=== PATIENT | female | born 1965 | race Caucasian/White ===

== ENCOUNTER 2017-09-01 08:35 | Inpatient (IN) | payer OTHER ==
[~2017-09-01] VITALS: Ht 162.6 cm; Wt 48.8 kg
[2017-09-01] MEDS ORDERED: OXYC15TA89 PO (09:10)
[2017-09-01] MEDS ORDERED: PROM25TA9 PO (09:10)
[2017-09-01] MEDS ORDERED: POTA20TA16 PO (09:10)
[2017-09-01] MEDS ORDERED: CLON0.5T3 PO (09:10)
[2017-09-01] MEDS ORDERED: LACT10SO30 PO (09:10)
[2017-09-01] MEDS ORDERED: PANT40TA PO (09:10)
[2017-09-01] MEDS ORDERED: VALA500T60 PO (09:10)
[2017-09-01] MEDS ORDERED: BUPR-79 PO (09:10)
[2017-09-01] MEDS ORDERED: PROC1TAB5 PO (09:10)
[2017-09-01] MEDS ORDERED: GABA-113 PO (09:10)
[2017-09-01] MEDS ORDERED: OXYC1TAB PO (09:10)
[2017-09-01] MEDS ORDERED: MAGN400T6 PO (09:10)
[2017-09-01] MEDS ORDERED: ANAS1TAB19 PO (09:10)
--- NOTE | 2017-09-01 09:30 | DIAGNOSTIC IMAGING REPORT ---
CT SCAN OF THE BRAIN WITHOUT IV CONTRAST CLINICAL HISTORY: Weakness. Change in mental status. COMPARISON STUDY: No priors. TECHNIQUE: Unenhanced axial CT scan of the brain is performed from the vertex to the skull base. A dose lowering technique was utilized adhering to the principles of ALARA. CT DOSE: 679.75 mGycm FINDINGS: Brain parenchyma: There are age-related involutional changes noting mild subcortical and periventricular microangiopathic change. Chronic lacunar infarcts are identified in the left basal ganglia. There is no hemorrhage, mass effect, or evidence of acute territorial ischemia by CT criteria. Marie-white matter is preserved. No extra-axial fluid collection is seen. Ventricles, sulci, cisterns: Prominent secondary to involutional change. Intracranial vasculature: There is mild atherosclerotic calcification of the cavernous carotid and vertebral arteries. Calvarium: Unremarkable. Sinuses and mastoids: The visualized paranasal sinuses are clear. The mastoid air cells are well pneumatized. Orbits: The bony orbits are grossly intact. IMPRESSION: Age advanced white matter change with no hemorrhage, mass effect, or evidence of acute territorial ischemia by CT criteria. Electronically signed by: Nakul Jacob M.D. 09/01/2017 9:29 AM Dictated Date/Time: 09/01/2017 9:27 AM
--- NOTE | 2017-09-01 09:45 | DIAGNOSTIC IMAGING REPORT ---
SINGLE VIEW CHEST CLINICAL HISTORY: Weakness. Change in mental status. FINDINGS: An AP, portable, upright chest radiograph is obtained. No prior studies are available for comparison at the time of dictation. The examination is degraded by portable technique and patient rotation. A 2-lead cardiac AICD partially obscures the right lower chest. The cardiomediastinal silhouette is unremarkable. The lungs and pleural spaces are clear. No pneumothorax is seen. The bony thorax is grossly intact. IMPRESSION: No acute cardiopulmonary abnormality. Electronically signed by: Nakul Jacob M.D. 09/01/2017 9:44 AM Dictated Date/Time: 09/01/2017 9:43 AM
[2017-09-01 09:53] LABS: BASO % 0.9 %; BASO ABS # 0.06 K/uL (0-0.2); EOS % 1.7 %; EOS ABS # 0.12 K/uL (0-0.5); HEMATOCRIT 31.3 % (37-47); HEMOGLOBIN 10.7 g/dL (12.0-16.0); IG# 0.04 K/uL (0.00-0.02); LYMPH % 26.9 %; LYMPH ABS # 1.88 K/uL (1.2-3.4); MEAN CELL VOLUME 89.2 fL (80-100); MEAN CORPUSCULAR HEMOGLOBIN 30.5 pg (25-34); MEAN CORPUSCULAR HGB CONC 34.2 g/dl (32-36); MEAN PLATELET VOLUME 9.8 fL (7.4-10.4); MONO % 9.3 %; MONO ABS # 0.65 K/uL (0.11-0.59); NEUT % 60.6 %; NEUT ABS # 4.25 K/uL (1.4-6.5); PLATELET COUNT 166 K/uL (130-400); RED CELL DISTRIBUTION WIDTH SD 49.2 fL (36.4-46.3)
[2017-09-01 10:10] LABS: INR 1.1 (0.9-1.1); PTT PATIENT 26.8 SECONDS (21.0-31.0)
[2017-09-01 10:29] LABS: ALBUMIN 3.1 gm/dl (3.4-5.0); ALKALINE PHOSPHATASE 181 U/L (45-117); ALT/SGPT 44 U/L (12-78); AST/SGOT 42 U/L (15-37); BLOOD UREA NITROGEN 26 mg/dl (7-18); CALCIUM 6.7 mg/dl (8.5-10.1); CARBON DIOXIDE 20 mmol/L (21-32); CKMB 1.6 ng/ml (0.5-3.6); CREATININE 2.19 mg/dl (0.60-1.20); GLUCOSE 75 mg/dl (70-99); LIPASE 78 U/L (73-393); POTASSIUM 6.8 mmol/L (3.5-5.1); SODIUM 131 mmol/L (136-145)
[2017-09-01] MEDS ORDERED: SODIUM CHLORIDE 0.9% 1000ML 1,000 ML IV STA (10:45)
[2017-09-01] MEDS ORDERED: SODIUM POLYST. SULF SUSP 15G/60ML PO STA (10:45)
[2017-09-01] MEDS ORDERED: ONDA4TAB46 PO (10:54)
[2017-09-01] MEDS ORDERED: DPH/ PO (10:54)
[2017-09-01] MEDS ORDERED: BUPR-83 PO (10:54)
[2017-09-01] MEDS ORDERED: CHOL2000 PO (10:54)
[2017-09-01] MEDS ORDERED: DOCU-94 PO (10:54)
[2017-09-01] MEDS ORDERED: METO25TA56 PO (10:54)
[2017-09-01] MEDS ORDERED: OLAN-111 PO (10:54)
[2017-09-01] MEDS ORDERED: ENOX60IN SQ (10:54)
[2017-09-01] MEDS ORDERED: ACET-1256 PO (10:54)
[2017-09-01] MEDS ORDERED: OXYC1TAB3 PO (10:54)
[2017-09-01] MEDS ORDERED: [UNRECOGNIZED DRUG - CODE] PO (10:54)
[2017-09-01] MEDS ORDERED: IPRASOL4 INH (10:54)
[2017-09-01] MEDS ORDERED: MAGNESIUM SULFATE 1GM / D5W 1 GM BAG IV STA (10:59)
[2017-09-01 11:21] VITALS: O2SAT 96; BMI 20.4
[2017-09-01] MEDS ORDERED: DEXTROSE 50% 50 ML SYR IV STA (11:59)
[2017-09-01] MEDS ORDERED: INSULIN HUMAN REGULAR IV STA (11:59)
[2017-09-01] MEDS ORDERED: ALBUTEROL 0.083% NEBU SOLN 3 ML VIAL INH STA (11:59)
[2017-09-01] MEDS ORDERED: ONDANSETRON INJ 2 MG/ML 2 ML VIAL IV PRN (12:00)
[2017-09-01] MEDS ORDERED: MAGNESIUM HYDROXIDE SUSP 30 ML UDC PO PRN (12:00)
[2017-09-01] MEDS ORDERED: ACETAMINOPHEN 500 MG TAB PO SCH (12:00)
[2017-09-01] MEDS ORDERED: ZOLPIDEM TARTRATE 5 MG TAB PO PRN ×2 (12:00)
[2017-09-01] MEDS ORDERED: ACETAMINOPHEN 325 MG TAB PO PRN (12:00)
[2017-09-01] MEDS ORDERED: POLYETHYLENE (MIRALAX) 17 GM PACK PO PRN (12:00)
[2017-09-01] MEDS ORDERED: ALUMINUM/MAGNESIUM/SIMETH (MAALOX MAX) 30 ML UDC PO PRN (12:00)
[2017-09-01] MEDS ORDERED: ONDANSETRON 4 MG TAB PO PRN (12:00)
[2017-09-01] MEDS ORDERED: LORAZEPAM 2 MG/ML 1 ML VIAL IV PRN (12:15)
[2017-09-01] MEDS ORDERED: MoRPHine SULFATE 4 MG/ML 1 ML CARP\\VIAL IV STA (12:20)
--- NOTE | 2017-09-01 12:24 | History and Physical ---
History & Physical Date & Time of Service: Sep 01, 2017 at 12:10 Chief Complaint: Seizure Primary Care Physician: No Doctor, Assigned History of Present Illness Source: patient, family 52 years old female who was diagnosed with low-grade serous ovarian cancer/ fallopian tube on 2007. Patient had multiple rounds of chemotherapy complicated by neuropathy. Unfortunately had a recurrent cancer with small bowel obstruction status post laparotomy/intero lysis/ ileocecal resection with anastomosis. That was complicated by bowel gangrene, requiring bowel resection and colostomy around 2016. Since then patient was doing all right but developed critical care illness myopathy. She was discharged to [facility] for physical therapy. She was also started on hormonal therapy for her ovarian cancer. Her hospital stay in [place] was complicated by a DVT which is she taking Lovenox 1 mg/kg twice a day for. At [facility]. staff noticed that patient went to a seizure episode lasted about 5 minutes until paramedics arrived and she was transferred to the ER. Within the last few days patient was not eating or drinking as per family, decrease oral intake. She is also on potassium supplement. On arrival to ED her potassium was 6.8 and creatinine more than 2, family said she has no history of renal impairment Past Medical/Surgical History Surgical Problems: (1) Hx of colectomy Status: Resolved Family History Diabetes mellitus Heart disease Hypertension Stroke Social History Smoking Status: Never Smoker Multi-Drug Resistant Organisms History of MDRO: No Allergies Coded Allergies: No Known Allergies (Unverified , 09/01/17) Home Medications Scheduled Acetaminophen (Tylenol), 500 MG PO Q4H Bupropion (Wellbutrin), 50 MG PO BID Cholecalciferol (Vitamin D3), 1 CAP PO DAILY Diphenoxylate W/ Atropine (Lomotil), 1 TAB PO QID Docusate Sodium (Colace), 1 CAP PO BID Enoxaparin (Lovenox), 60 MG SQ Q12H Ipratropium-Albuterol (Duoneb), 1 TREATMENT INH Q4H Metoprolol Tartrate (Lopressor) (Lopressor), 25 MG PO BID Olanzapine (Zyprexa), 0.5 TAB PO HS Opium Tincture (Opium Tincture), 0.4 ML PO Q6H Pantoprazole (Protonix), 40 MG PO DAILY Potassium Ext Rel (Klor-Con), 20 MEQ PO BID Scheduled PRN Lactulose (Encephalopathy) (Lactulose), 30 ML PO for Constipation Ondansetron Hcl (Zofran), 4 MG PO Q8 PRN for Nausea Oxycodone Ir (Roxicodone Ir), 5 MG PO Q3H PRN for Severe Pain Review of Systems Constitutional: + weight loss, + weakness, + fatigue, No fever, No chills, No sweats, No problem reported Eyes: No worsening of vision, No eye pain, No redness, No discharge, No diplopia, No problem reported ENT: No hearing loss, No unusual epistaxis, No nasal symptoms, No sore throat, No tinnitus, No dental problems, No trouble swallowing, No problem reported Respiratory: No cough, No sputum, No wheezing, No shortness of breath, No dyspnea on exertion, No dyspnea at rest, No hemoptysis, No problem reported Cardiovascular: No chest pain, No orthopnea, No PND, No edema, No claudication , No palpitations, No problem reported Abdomen: + nausea, + vomiting, No pain, No diarrhea, No constipation, No GI bleeding, No problem reported Musculoskeletal: No joint pain, No muscle pain, No swelling, No calf pain, No problem reported Genitourinary - Female: + dysuria (she has indwelling Moffett catheter, developed pain every time she feels that during going through the cath) Neurologic: No memory loss, No paralysis, No weakness, No numbness/tingling, No vertigo, No balance problems, No problem reported Psychiatric: No depression symptoms, No anhedonism, No anxiety, No insomnia, No substance abuse, No problem reported Endocrine: + fatigue, No excessive thirst, No excessive urination, No problem reported Hematologic / Lymphatic: No abnormal bleeding/bruising, No clotting problems, No swollen lymph nodes, No night sweats, No problem reported Integumentary: No rash, No itch, No new/changing skin lesions, No color change , No bleeding, No problem reported Allergic / Immunologic: No environmental allergies, No seasonal allergies, No pet sensitivities, No food allergies, No hives, No frequent infections, No poor healing, No prolonged convalescence, No problem reported Physical Exam Vital Signs Date Time Temp Pulse Resp B/P (MAP) Pulse Ox O2 Delivery O2 Flow Rate FiO2 09/01/17 11:34 77 24 100/66 96 Room Air 09/01/17 11:21 96 Room Air 09/01/17 10:05 83 16 100 09/01/17 09:35 86 16 97 09/01/17 09:05 81 22 97 09/01/17 09:00 99 Room Air 09/01/17 08:50 36.7 84 18 118/68 99 Room Air 09/01/17 08:41 87 09/01/17 08:38 118/68 General Appearance: no apparent distress, + thin Head: normocephalic, atraumatic Eyes: normal inspection, EOMI ENT: normal ENT inspection, hearing grossly normal Neck: supple Respiratory/Chest: chest non-tender, lungs clear, normal breath sounds, no respiratory distress, no accessory muscle use Cardiovascular: regular rate, rhythm, no edema, no gallop, no JVD, no murmur, normal peripheral pulses Abdomen/GI: normal bowel sounds, non tender, soft, + pertinent finding (wound VAC/colostomy next to the) Back: normal inspection Extremities/Musculoskelatal: normal inspection, no calf tenderness, no pedal edema Neurologic/Psych: 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 II-XII nml as tested, no motor/sensory deficits, alert, normal mood/affect, normal reflexes, oriented x 3 Skin: normal color, warm/dry, no rash Diagnostics Laboratory Results Results Past 24 Hours Test 09/01/17 09:28 09/01/17 10:30 09/01/17 11:53 09/01/17 12:00 Range/Units White Blood Count 7.00 4.8-10.8 K/uL Red Blood Count 3.51 4.2-5.4 M/uL Hemoglobin 10.7 12.0-16.0 g/dL Hematocrit 31.3 37-47 % Mean Corpuscular Volume 89.2 80-100 fL Mean Corpuscular Hemoglobin 30.5 25-34 pg Mean Corpuscular Hemoglobin Concent 34.2 32-36 g/dl Platelet Count 166 130-400 K/uL Mean Platelet Volume 9.8 7.4-10.4 fL Neutrophils (%) (Auto) 60.6 % Lymphocytes (%) (Auto) 26.9 % Monocytes (%) (Auto) 9.3 % Eosinophils (%) (Auto) 1.7 % Basophils (%) (Auto) 0.9 % Neutrophils # (Auto) 4.25 1.4-6.5 K/uL Lymphocytes # (Auto) 1.88 1.2-3.4 K/uL Monocytes # (Auto) 0.65 0.11-0.59 K/uL Eosinophils # (Auto) 0.12 0-0.5 K/uL Basophils # (Auto) 0.06 0-0.2 K/uL RDW Standard Deviation 49.2 36.4-46.3 fL RDW Coefficient of Variation 15.0 11.5-14.5 % Immature Granulocyte % (Auto) 0.6 % Immature Granulocyte # (Auto) 0.04 0.00-0.02 K/uL Prothrombin Time 11.5 9.0-12.0 SECONDS Prothromb Time International Ratio 1.1 0.9-1.1 Activated Partial Thromboplast Time 26.8 21.0-31.0 SECONDS Partial Thromboplastin Ratio 1.0 Sodium Level 131 136-145 mmol/L Potassium Level 6.8 3.5-5.1 mmol/L Chloride Level 101 98-107 mmol/L Carbon Dioxide Level 20 21-32 mmol/L Anion Gap 10.0 3-11 mmol/L Blood Urea Nitrogen 26 7-18 mg/dl Creatinine 2.19 0.60-1.20 mg/dl Est Creatinine Clear Calc Drug Dose 25.6 ml/min Estimated GFR () 29.1 Estimated GFR (Non- 25.1 BUN/Creatinine Ratio 11.9 10-20 Random Glucose 75 70-99 mg/dl Calcium Level 6.7 8.5-10.1 mg/dl Magnesium Level 0.4 1.8-2.4 mg/dl Total Bilirubin 0.3 0.2-1 mg/dl Direct Bilirubin 0.1 0-0.2 mg/dl Aspartate Amino Transf (AST/SGOT) 42 15-37 U/L Alanine Aminotransferase (ALT/SGPT) 44 12-78 U/L Alkaline Phosphatase 181 45-117 U/L Total Creatine Kinase 78 26-192 U/L Creatine Kinase MB 1.6 0.5-3.6 ng/ml Creatine Kinase MB Ratio 2.1 0-3.0 Troponin I < 0.015 0-0.045 ng/ml Total Protein 8.0 6.4-8.2 gm/dl Albumin 3.1 3.4-5.0 gm/dl Lipase 78 73-393 U/L Thyroid Stimulating Hormone (TSH) 9.040 0.300-4.500 uIu/ml Urine Color YELLOW Urine Appearance CLOUDY CLEAR Urine pH 7.5 4.5-7.5 Urine Specific [place] 1.012 1.000-1.030 Urine Protein NEG NEG Urine Glucose (UA) NEG NEG Urine Ketones NEG NEG Urine Occult Blood NEG NEG Urine Nitrite POS NEG Urine Bilirubin NEG NEG Urine Urobilinogen NEG NEG Urine Leukocyte Esterase LARGE NEG Urine WBC (Auto) >30 0-5 /hpf Urine RBC (Auto) 10-30 0-4 /hpf Urine Hyaline Casts (Auto) 1-5 0-5 /lpf Urine Epithelial Cells (Auto) 0-5 0-5 /lpf Urine Bacteria (Auto) 4+ NEG Microbiology Results 09/01/17 Blood Culture, Ordered Pending 09/01/17 Blood Culture, Ordered Pending 09/01/17 Urine Culture, Received Pending Impression Assessment and Plan 52 years old female who was diagnosed with recurrent low-grade serous ovarian cancer/fallopian tube since 2007. Complicated by small bowel obstruction status post laparotomy/intero lysis/ ileocecal resection with anastomosis. That was complicated by bowel gangrene, requiring bowel resection and colostomy around 2016. Presented with acute kidney injury/hyperkalemia/ seizure times one episode Assessment Seizure 5 minutes one episode likely secondary to electrolyte Dehydration, decrease oral intake Acute kidney injury, baseline creatinine is unknown Hyperkalemia secondary to above Hypomagnesemia Complicated UTI present on admission in the setting of indwelling Moffett catheter Hypothyroidism Recurrent ovarian cancer status post chemotherapy/resection currently have colostomy and on hormonal therapy DVT currently on anticoagulation Severe protein calorie malnutrition Critical care illness myopathy Plan Admit patient to telemetry Order kayexalate Order albuterol 5 mg continuous nebulizer to lower potassium level Order 10 units insulin regular IV +1 amp of D50 Reviewed EKG and ordered calcium gluconate IV if there is any EKG changes Check potassium level every 4 hours Generous IV fluid hydration and Lasix if needed Hold outpatient medication contributing to hyperkalemia Replace magnesium and check serious magnesium level Ultrasound renal Consult aboriginal home school liaison officer Obtain blood culture/urine culture Replace Moffett catheter Start patient on Cipro 400 mg daily renally adjusted dose and obtain records from [facility] with her last creatinine function level Start her on lactobacillus to protect her from C. difficile Follow up electrolytes Continue outpatient medications except potassium supplement Continue Lovenox subcutaneous twice a day Continue Protonix Seizure precaution Ativan when necessary seizure Advanced Directives Existing Living Will: No Existing Power of Gin Feeder: No Resuscitation Status FULL RESUSCITATION
--- NOTE | 2017-09-01 12:53 | DIAGNOSTIC IMAGING REPORT ---
(RENAL)RETROPERITON COMP HISTORY: Renal insufficiency renal failure COMPARISON: None. FINDINGS: Right kidney: Maximum linear dimension 9.2 cm. 7 mm cortical cyst. Mild cortical scarring. No evidence for hydronephrosis. Normal corticomedullary differentiation and cortical thickness. Left kidney: Maximum dimension 8.3 cm. Mild cortical scarring. No evidence for hydronephrosis. Normal corticomedullary differentiation and cortical thickness. Bladder: No bladder wall thickening. The bilateral ureteral jets were identified. IMPRESSION: 1. Mild cortical scarring of the kidneys bilaterally. 2. Small right renal cortical cyst. 3. No evidence for hydronephrosis. The above report was generated using voice recognition software. It may contain grammatical, syntax or spelling errors. Electronically signed by: Andrew Mcknight M.D. 09/01/2017 12:51 PM Dictated Date/Time: 09/01/2017 12:50 PM
[2017-09-01] MEDS ORDERED: DEXTROSE 50% 50 ML SYR IV SCH (13:20)
[2017-09-01] MEDS ORDERED: INSULIN HUMAN REGULAR PER UNIT 10 UNITS in SYRINGE 9.9 ML IV SCH (13:30)
[2017-09-01] MEDS ORDERED: CEFTRIAXONE SOD INJ 1 GM ADDVIAL IV STA (13:41)
--- NOTE | 2017-09-01 13:43 | EMERGENCY ROOM VISIT NOTE ---
History Report prepared by Nandini: Miko Olea Under the Supervision of: Dr. Ty Hernandez D.O. First contact with patient: 09:00 Chief Complaint: SEIZURE Stated Complaint: SEIZURE Nursing Triage Summary: pt arrived als from medical center clinic reported 5 minute seizure, no previous hx of seizure. pt hx of oviarian ca since 2007, recent surgery bowel obstruction, pt has a wound vac, marrero, iliostomy pt has no complaints at this time History of Present Illness The patient is a 52 year old female who presents to the Emergency Room with complaints of a resolved, 5 minute seizure that occurred prior to arrival. EMS notes the patient's seizure lasted 5 minutes. The patient reports she currently feel fine. The patient states she recently had surgery and lives at [facility]. She reports she currently has a Wound Vac, Fully, and ileostomy in place. The patient notes she has been battling ovarian cancer since 2007. She states she does not know why she had her colon removed. She denies recent fever , cough, sorethroat, abdominal pain, chest pain, and a headache. Source of History: patient Onset: prior to arrival Position: other (global) Symptom Intensity: 5 minutes Quality: other (seizure) Timing: resolved Associated Symptoms: No fevers, No headache, No sorethroat, No cough, No chest pain, No abdominal pain Review of Systems See HPI for pertinent positives & negatives. A total of 10 systems reviewed and were otherwise negative. Past Medical & Surgical Medical Problems: (1) Hyperkalemia (2) Ovarian cancer Surgical Problems: (1) Hx of colectomy Family History Diabetes mellitus Heart disease Hypertension Stroke Social History Smoking Status: Never Smoker Marital Status: Housing Status: other ([facility]) Occupation Status: disabled Current/Historical Medications Scheduled Acetaminophen (Tylenol), 500 MG PO Q4H Bupropion (Wellbutrin), 50 MG PO BID Cholecalciferol (Vitamin D3), 1 CAP PO DAILY Diphenoxylate W/ Atropine (Lomotil), 1 TAB PO QID Docusate Sodium (Colace), 1 CAP PO BID Enoxaparin (Lovenox), 60 MG SQ Q12H Ipratropium-Albuterol (Duoneb), 1 TREATMENT INH Q4H Metoprolol Tartrate (Lopressor) (Lopressor), 25 MG PO BID Olanzapine (Zyprexa), 0.5 TAB PO HS Opium Tincture (Opium Tincture), 0.4 ML PO Q6H Pantoprazole (Protonix), 40 MG PO DAILY Potassium Ext Rel (Klor-Con), 20 MEQ PO BID Scheduled PRN Lactulose (Encephalopathy) (Lactulose), 30 ML PO for Constipation Ondansetron Hcl (Zofran), 4 MG PO Q8 PRN for Nausea Oxycodone Ir (Roxicodone Ir), 5 MG PO Q3H PRN for Severe Pain Allergies Coded Allergies: No Known Allergies (Unverified , 09/01/17) Physical Exam Vital Signs Date Time Temp Pulse Resp B/P (MAP) Pulse Ox O2 Delivery O2 Flow Rate FiO2 09/01/17 13:11 80 16 99/66 96 Room Air 09/01/17 12:45 80 09/01/17 11:34 77 24 100/66 96 Room Air 09/01/17 11:21 96 Room Air 09/01/17 10:05 83 16 100 09/01/17 09:35 86 16 97 09/01/17 09:05 81 22 97 09/01/17 09:00 99 Room Air 09/01/17 08:50 36.7 84 18 118/68 99 Room Air 09/01/17 08:41 87 09/01/17 08:38 118/68 Physical Exam CONSTITUTIONAL/VITAL SIGNS: Reviewed / noted above. GENERAL: Non-toxic in appearance. INTEGUMENTARY: Warm, dry, and [place]. HEAD: Normocephalic. EYES: without scleral icterus or trauma. ENT/OROPHARYNX: clear and moist. LYMPHADENOPATHY/NECK: Is supple without lymphadenopathy or meningismus. RESPIRATORY: Lungs clear and equal. CARDIOVASCULAR: Regular rate and rhythm. GI/ABDOMEN: Soft and nontender. No organomegaly or pulsatile mass. No rebound or guarding. Normal bowel sounds. Right abdomen has a colostomy. Left abdomen has a Wound Vac. EXTREMITIES: Warm and well perfused. BACK: No CVA tenderness. NEUROLOGICAL: Intact without focal deficits. PSYCHIATRIC: normal affect. MUSCULOSKELETAL: Normally developed with good muscle tone. Medical Decision & Procedures ER Provider Diagnostic Interpretation: Radiology results as stated below per my review and radiologist interpretation: CT SCAN OF THE BRAIN WITHOUT IV CONTRAST CLINICAL HISTORY: Weakness. Change in mental status. COMPARISON STUDY: No priors. TECHNIQUE: Unenhanced axial CT scan of the brain is performed from the vertex to the skull base. A dose lowering technique was utilized adhering to the principles of ALARA. CT DOSE: 679.75 mGycm FINDINGS: Brain parenchyma: There are age-related involutional changes noting mild subcortical and periventricular microangiopathic change. Chronic lacunar infarcts are identified in the left basal ganglia. There is no hemorrhage, mass effect, or evidence of acute territorial ischemia by CT criteria. Marie-white matter is preserved. No extra-axial fluid collection is seen. Ventricles, sulci, cisterns: Prominent secondary to involutional change. Intracranial vasculature: There is mild atherosclerotic calcification of the cavernous carotid and vertebral arteries. Calvarium: Unremarkable. Sinuses and mastoids: The visualized paranasal sinuses are clear. The mastoid air cells are well pneumatized. Orbits: The bony orbits are grossly intact. IMPRESSION: Age advanced white matter change with no hemorrhage, mass effect, or evidence of acute territorial ischemia by CT criteria. Electronically signed by: Nakul Jacob M.D. 09/01/2017 9:29 AM Dictated Date/Time: 09/01/2017 9:27 AM SINGLE VIEW CHEST CLINICAL HISTORY: Weakness. Change in mental status. FINDINGS: An AP, portable, upright chest radiograph is obtained. No prior studies are available for comparison at the time of dictation. The examination is degraded by portable technique and patient rotation. A 2-lead cardiac AICD partially obscures the right lower chest. The cardiomediastinal silhouette is unremarkable. The lungs and pleural spaces are clear. No pneumothorax is seen. The bony thorax is grossly intact. IMPRESSION: No acute cardiopulmonary abnormality. Electronically signed by: Nakul Jacob M.D. 09/01/2017 9:44 AM Dictated Date/Time: 09/01/2017 9:43 AM Laboratory Results 09/01/17 09:28 Red Blood Count 3.51, Mean Corpuscular Volume 89.2, Mean Corpuscular Hemoglobin 30.5, Mean Corpuscular Hemoglobin Concent 34.2, Mean Platelet Volume 9.8, Neutrophils (%) (Auto) 60.6, Lymphocytes (%) (Auto) 26.9, Monocytes (%) (Auto) 9.3, Eosinophils (%) (Auto) 1.7, Basophils (%) (Auto) 0.9, Neutrophils # (Auto) 4.25, Lymphocytes # (Auto) 1.88, Monocytes # (Auto) 0.65, Eosinophils # (Auto) 0.12, Basophils # (Auto) 0.06 Test 09/01/17 09:28 09/01/17 10:30 09/01/17 13:30 White Blood Count 7.00 K/uL (4.8-10.8) Red Blood Count 3.51 M/uL (4.2-5.4) Hemoglobin 10.7 g/dL (12.0-16.0) Hematocrit 31.3 % (37-47) Mean Corpuscular Volume 89.2 fL (80-100) Mean Corpuscular Hemoglobin 30.5 pg (25-34) Mean Corpuscular Hemoglobin Concent 34.2 g/dl (32-36) Platelet Count 166 K/uL (130-400) Mean Platelet Volume 9.8 fL (7.4-10.4) Neutrophils (%) (Auto) 60.6 % Lymphocytes (%) (Auto) 26.9 % Monocytes (%) (Auto) 9.3 % Eosinophils (%) (Auto) 1.7 % Basophils (%) (Auto) 0.9 % Neutrophils # (Auto) 4.25 K/uL (1.4-6.5) Lymphocytes # (Auto) 1.88 K/uL (1.2-3.4) Monocytes # (Auto) 0.65 K/uL (0.11-0.59) Eosinophils # (Auto) 0.12 K/uL (0-0.5) Basophils # (Auto) 0.06 K/uL (0-0.2) RDW Standard Deviation 49.2 fL (36.4-46.3) RDW Coefficient of Variation 15.0 % (11.5-14.5) Immature Granulocyte % (Auto) 0.6 % Immature Granulocyte # (Auto) 0.04 K/uL (0.00-0.02) Prothrombin Time 11.5 SECONDS (9.0-12.0) Prothromb Time International Ratio 1.1 (0.9-1.1) Activated Partial Thromboplast Time 26.8 SECONDS (21.0-31.0) Partial Thromboplastin Ratio 1.0 Est Creatinine Clear Calc Drug Dose 25.6 ml/min Total Bilirubin 0.3 mg/dl (0.2-1) Direct Bilirubin 0.1 mg/dl (0-0.2) Aspartate Amino Transf (AST/SGOT) 42 U/L (15-37) Alanine Aminotransferase (ALT/SGPT) 44 U/L (12-78) Alkaline Phosphatase 181 U/L (45-117) Total Creatine Kinase 78 U/L (26-192) Creatine Kinase MB 1.6 ng/ml (0.5-3.6) Creatine Kinase MB Ratio 2.1 (0-3.0) Troponin I < 0.015 ng/ml (0-0.045) Total Protein 8.0 gm/dl (6.4-8.2) Albumin 3.1 gm/dl (3.4-5.0) Lipase 78 U/L (73-393) Thyroid Stimulating Hormone (TSH) 9.040 uIu/ml (0.300-4.500) Urine Color YELLOW Urine Appearance CLOUDY (CLEAR) Urine pH 7.5 (4.5-7.5) Urine Specific [place] 1.012 (1.000-1.030) Urine Protein NEG (NEG) Urine Glucose (UA) NEG (NEG) Urine Ketones NEG (NEG) Urine Occult Blood NEG (NEG) Urine Nitrite POS (NEG) Urine Bilirubin NEG (NEG) Urine Urobilinogen NEG (NEG) Urine Leukocyte Esterase LARGE (NEG) Urine WBC (Auto) >30 /hpf (0-5) Urine RBC (Auto) 10-30 /hpf (0-4) Urine Hyaline Casts (Auto) 1-5 /lpf (0-5) Urine Epithelial Cells (Auto) 0-5 /lpf (0-5) Urine Bacteria (Auto) 4+ (NEG) Laboratory results as stated above per my review. Medications Administered Medications (Trade) Dose Ordered Sig/Balaji Route Start Time Stop Time Status Last Admin Dose Admin Sodium Chloride 1,000 ml @ 999 mls/hr Q1H1M STAT IV 09/01/17 10:45 09/01/17 11:45 DC 09/01/17 11:07 999 MLS/HR Sodium Polystyrene Sulfonate (Kayexalate Susp) 30 gm NOW STAT PO 09/01/17 10:45 09/01/17 10:47 DC 09/01/17 11:05 30 GM Magnesium Sulfate (Magnesium Sulfate) 2 gm NOW STAT IV 09/01/17 10:59 09/01/17 11:00 DC 09/01/17 11:12 2 GM Morphine Sulfate (MoRPHine SULFATE INJ) 4 mg NOW STAT IV 09/01/17 12:20 09/01/17 12:21 DC 09/01/17 12:50 4 MG ECG Indication: other (seizure) Rate (beats per minute): 86 Rhythm: normal sinus Findings: no acute ischemic change, no ectopy ED Course 09: Previous medical records were reviewed. The patient was evaluated in room A03. A complete history and physical examination was performed. 1045: Ordered Sodium Polystyrene Sulfonate 30gm PO, Sodium Chloride 1000 ml @ 999 mls/hr IV 1047: On reevaluation, the patient is resting comfortably. I discussed the results and findings with her. She verbalized agreement of the treatment plan. 1057: I spoke with Dr. Sudeep España of the [facility] Hospitalist Service. The patient will be evaluated for further management and care. 1059: Ordered Magnesium Sulfate 2gm IV 1220: Ordered Morphine Sulfate 4 mg IV Medical Decision Differential diagnosis: Etiologies such as infection, hypoglycemia, electrolyte abnormalities, cardiac sources, intracerebral event, trauma, toxicologic, neurologic, as well as others were entertained. This is a 52-year-old female who presents to the ED with a chief complaint of a seizure. The patient had a reported tonic-clonic seizure at [facility] just prior to arrival. The patient's seizure lasted about 5 minutes, per report. The patient denies any history of seizures. She does report a history of ovarian cancer in 2007. The patient had recent bowel resection due to tumor around the bowel and subsequent colostomy. This occurred over . She has been sent to [facility] for recovery due to chronic neuropathy and weakness. On exam, the patient denies having any symptoms. She states that she feels fine. Family reports the patient has had some nausea, decreased appetite and a little vomiting over the past few days. Her physical exam did not reveal any abdominal tenderness. Her colostomy appears to be functioning normally. She does have a wound VAC in the left lower abdomen that does not reveal any obvious visible abnormalities. She has no tenderness in the area. She did not injure her tongue or have incontinence. Her vital signs are normal. She is afebrile. Laboratory studies revealed an elevated potassium of 6.8 and a creatinine of 2.19. EKG did not show any acute findings. Baseline creatinine is unknown but family reports no prior history of kidney dysfunction. Troponin was negative. Hemoglobin is 10.7. CT scan of the brain did not show acute process and a chest x-ray did not show acute process. The patient was treated with IV fluids. She was given IV Rocephin for her UTI. By mouth Kayexalate was given. The patient was seen by the hospitalist for further inpatient evaluation and care. Medication Reconcilliation Current Medication List: was personally reviewed by me Blood Pressure Screening Patient's blood pressure: Normal blood pressure Blood pressure disposition: Did not require urgent referral Consults Time Called: 1042 Consulting Physician: Dr. Sudeep España of the [facility] Hospitalist Service Returned Call: [phone] Sudeep España of the [facility] Hospitalist Service. The patient will be evaluated for further management and care. Impression Primary Impression: Seizure Additional Impressions: Acute renal failure Hyperkalemia Scribe Attestation The scribe's documentation has been prepared under my direction and personally reviewed by me in its entirety. I confirm that the note above accurately reflects all work, treatment, procedures, and medical decision making performed by me. Departure Information Dispostion Being Evaluated By Hospitalist Referrals Riaz Ramsay M.D. (PCP) Patient Instructions [facility] Problem Qualifiers
[2017-09-01 14:07] LABS: CALCIUM 6.7 mg/dl (8.5-10.1); CREATININE 2.27 mg/dl (0.60-1.20); POTASSIUM 5.9 mmol/L (3.5-5.1)
[2017-09-01] MEDS ORDERED: LORAZEPAM INJ 2 MG in SYRINGE 1 ML IV PRN (14:15)
[2017-09-01 14:20] VITALS: BP 99/66; PULSE 96; TEMP 36.5; O2SAT 99
[2017-09-01] MEDS ORDERED: SODIUM POLYST. SULF SUSP 15G/60ML PO SCH (15:00)
[2017-09-01] MEDS: SODIUM CHLORIDE 0.9% 1000ML 1,000 ML IV SCH (15:41)
[2017-09-01 16:36] VITALS: Ht 162.6 cm; Wt 48.8 kg
[2017-09-01] MEDS: CIPROFLOXACIN / D5W 400 MG in PREMIXED IN D5W 200 ML IV SCH (16:39)
[2017-09-01] MEDS: DIPHENOXYLATE/ATROPINE 2.5/0.025MG TAB PO SCH ×2 (16:39→20:48)
[2017-09-01] MEDS: LACTOBACILLUS ACIDOPHILUS 1 GM PACK PO SCH (16:40)
[2017-09-01 16:54] LABS: CREATININE 2.39 mg/dl (0.60-1.20); POTASSIUM 5.5 mmol/L (3.5-5.1)
--- NOTE | 2017-09-01 17:05 | Nephrology Consultation ---
Nephrology Consultation Date & Providers Date of Consultation: Sep 01, 2017. Primary Care Provider: No Doctor, Assigned Referring Provider: Reason for Consultation Acute renal insufficiency, hyperkalemia History of Present Illness Ms. Dora Garsia is a 52-year-old female who presented to [facility] today for evaluation of a witnessed tonic clonic seizure. I spoke with nursing staff at [facility]. She was transported by EMS to [facility] ED from [facility]. Dora was confused upon presentation to the ED today. Mental status has gradually improved. She was able to answer questions appropriately this afternoon. 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 She has been under the care of Dr. Jadiel Huffman of [facility]. Dora completed initial chemotherapy complicated by neuropathy. Unfortunately, she developed recurrent disease and presented to [facility] with small bowel obstruction. Dora subsequently underwent laparotomy with ileocecal resection with anastomosis. This was complicated by bowel gangrene, requiring bowel resection and colostomy which was performed in June 2017 at [facility]. 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 She has an abdominal wound with wound vac in place. Dora was discharged to [facility] on August 13. It is noted that Dora has had high output from her ostomy. This was treated with Lomotil and opium tincture. Dora's appetite is noted to be poor. Oral intake had decreased over the past few days. She had nausea and two episodes of vomiting (non bilious, non bloody) in the past 48 hours. Serum creatinine on August 20 was 1.3 mg/dL. Potassium was 4.7 mmol/L at that time. Creatinine was 1.5 mg/dL on the with a potassium of 5.5 mmol/L. Dora has had an indwelling Moffett catheter. She reports that the plan was to consider removal once she was able to follow up in the [facility] clinic with Dr. Huffman. Nephrology was consulted today to assist in the management of hyperkalemia, hypomagnesemia and acute renal insufficiency. CXR and CT head were reviewed. EKG was not immediately available for review at this time. Dora is on telemetry. Hyperkalemia was treated with PO Kayexalate. She received 6 gm of IV magnesium. IV hydration is being provided with NSS. Dora is tolerating treatment well. Past Medical/Surgical History Medical: -- Low grade serous ovarian cancer -- Recent SBO -- Chronic anemia -- Neuropathy associated with chemotherapy -- Depression -- GERD -- Chronic kidney disease, patient follows with Dr. Toth on a yearly basis for CKD Surgical: -- Colostomy as described above, additional records to follow Allergies Coded Allergies: No Known Allergies (Unverified , 09/01/17) Inpatient Medications Current Inpatient Medications Medications (Trade) Dose Ordered Sig/Balaji Route Start Time Stop Time Status Last Admin Dose Admin Bupropion HCl (Wellbutrin Tab) 50 mg BID PO 09/01/17 21:00 10/01/17 20:59 Diphenoxylate HCl/ Atropine (Lomotil Tab) 1 tab QID PO 09/01/17 17:00 10/01/17 16:59 Enoxaparin Sodium (Lovenox Inj) 60 mg Q12H SQ 09/01/17 12:00 10/01/17 11:59 UNV Albuterol/ Ipratropium (Duoneb) 3 ml QIDR INH 09/01/17 16:00 10/01/17 15:59 Olanzapine (Zyprexa Tab) 2.5 mg HS PO 09/01/17 21:00 10/01/17 20:59 Ondansetron HCl (Zofran Tab) 4 mg Q8 PRN PO 09/01/17 12:00 10/01/17 11:59 Oxycodone HCl (Roxicodone Immediate Rel Tab) 5 mg Q3H PRN PO 09/01/17 12:00 09/15/17 11:59 Pantoprazole Sodium (Protonix Tab) 40 mg DAILY PO 09/02/17 09:00 10/02/17 08:59 Sodium Chloride 1,000 ml @ 125 mls/hr Q8H IV 09/01/17 11:59 10/01/17 11:58 09/01/17 15:41 125 MLS/HR Acetaminophen (Tylenol Tab) 650 mg Q4H PRN PO 09/01/17 12:00 10/01/17 11:59 Al Hydrox/Mg Hydrox/Simethicone (Maalox Max Susp) 15 ml Q4H PRN PO 09/01/17 12:00 10/01/17 11:59 Magnesium Hydroxide (Milk Of Magnesia Susp) 30 ml Q12H PRN PO 09/01/17 12:00 10/01/17 11:59 Zolpidem Tartrate (Ambien Tab) 5 mg HSZ PRN PO 09/01/17 12:00 10/01/17 11:59 Ondansetron HCl (Zofran Inj) 4 mg Q6H PRN IV 09/01/17 12:00 10/01/17 11:59 Polyethylene (Miralax Powder Packet) 17 gm DAILY PRN PO 09/01/17 12:00 10/01/17 11:59 Sodium Polystyrene Sulfonate (Kayexalate Susp) 15 gm Q4H PO 09/01/17 15:00 09/02/17 12:00 Ciprofloxacin/ Dextrose 400 mg/ Prmx 200 ml @ 100 mls/hr DAILY@1600 IV 09/01/17 16:00 09/11/17 15:59 Lactobacillus Acidophilus (Lactinex Granules Pack) 1 gm TIDM PO 09/01/17 17:00 10/01/17 17:59 Enteral Nutritional Formula (Boost Plus Vanilla) 1 can BID PO 09/01/17 21:00 10/01/17 20:59 Lorazepam (Ativan Inj) 2 mg Q2H PRN IV 09/01/17 12:15 10/01/17 12:14 Lorazepam 2 mg/ Syringe 2 ml @ 1 mls/min Q2H PRN IV 09/01/17 14:15 10/01/17 14:14 Family History Diabetes mellitus Heart disease Hypertension Stroke Patient's mother was on hemodialysis for 2 years in [facility] before she at the age of 73. Social History Smoking Status: Never Smoker Marital Status: Occupation: disabled Lives in a skilled nursing in [place], [place]. Review of Systems A complete review of systems was performed. Pertinent positives are noted above. All other systems are negative. Physical Exam Date Time Temp Pulse Resp B/P (MAP) Pulse Ox O2 Delivery O2 Flow Rate FiO2 09/01/17 14:20 36.5 96 20 99/66 (77) 99 Room Air 09/01/17 13:50 92 18 108/76 96 Nebulizer 8.0 09/01/17 13:11 80 16 99/66 96 Room Air 09/01/17 12:45 80 09/01/17 11:34 77 24 100/66 96 Room Air 09/01/17 11:21 96 Room Air 09/01/17 10:05 83 16 100 09/01/17 09:35 86 16 97 09/01/17 09:05 81 22 97 09/01/17 09:00 99 Room Air 09/01/17 08:50 36.7 84 18 118/68 99 Room Air 09/01/17 08:41 87 09/01/17 08:38 118/68 General Appearance: no apparent distress, + thin Head: normocephalic, atraumatic Eyes: normal inspection, sclerae normal ENT: normal ENT inspection, pharynx normal, + pertinent finding (oral mucosa dry) Neck: supple, no JVD Respiratory/Chest: lungs clear, no respiratory distress, no accessory muscle use Cardiovascular: regular rate, rhythm, no gallop Abdomen/GI: non tender, soft, + pertinent finding (wound vac intact, ostomy draining liquid brown stool) Genitourinary - Female: + pertinent finding (Moffett draining cloudy yellow urine ) Back: no CVA tenderness Extremities/Musculoskelatal: no pedal edema, + pertinent finding (no distal cyanosis) Neurologic/Psych: alert, normal mood/affect Laboratory Results Last 24 Hours Test 09/01/17 09:28 09/01/17 10:30 09/01/17 13:30 09/01/17 15:59 White Blood Count 7.00 K/uL Red Blood Count 3.51 M/uL Hemoglobin 10.7 g/dL Hematocrit 31.3 % Mean Corpuscular Volume 89.2 fL Mean Corpuscular Hemoglobin 30.5 pg Mean Corpuscular Hemoglobin Concent 34.2 g/dl Platelet Count 166 K/uL Mean Platelet Volume 9.8 fL Neutrophils (%) (Auto) 60.6 % Lymphocytes (%) (Auto) 26.9 % Monocytes (%) (Auto) 9.3 % Eosinophils (%) (Auto) 1.7 % Basophils (%) (Auto) 0.9 % Neutrophils # (Auto) 4.25 K/uL Lymphocytes # (Auto) 1.88 K/uL Monocytes # (Auto) 0.65 K/uL Eosinophils # (Auto) 0.12 K/uL Basophils # (Auto) 0.06 K/uL RDW Standard Deviation 49.2 fL RDW Coefficient of Variation 15.0 % Immature Granulocyte % (Auto) 0.6 % Immature Granulocyte # (Auto) 0.04 K/uL Prothrombin Time 11.5 SECONDS Prothromb Time International Ratio 1.1 Activated Partial Thromboplast Time 26.8 SECONDS Partial Thromboplastin Ratio 1.0 Sodium Level 131 mmol/L 131 mmol/L Potassium Level 6.8 mmol/L 5.9 mmol/L Chloride Level 101 mmol/L 99 mmol/L Carbon Dioxide Level 20 mmol/L 21 mmol/L Anion Gap 10.0 mmol/L 11.0 mmol/L Blood Urea Nitrogen 26 mg/dl 24 mg/dl Creatinine 2.19 mg/dl 2.27 mg/dl Est Creatinine Clear Calc Drug Dose 25.6 ml/min 24.7 ml/min Estimated GFR () 29.1 27.8 Estimated GFR (Non- 25.1 24.0 BUN/Creatinine Ratio 11.9 10.7 Random Glucose 75 mg/dl 111 mg/dl Calcium Level 6.7 mg/dl 6.7 mg/dl Magnesium Level 0.4 mg/dl 1.4 mg/dl Total Bilirubin 0.3 mg/dl Direct Bilirubin 0.1 mg/dl Aspartate Amino Transf (AST/SGOT) 42 U/L Alanine Aminotransferase (ALT/SGPT) 44 U/L Alkaline Phosphatase 181 U/L Total Creatine Kinase 78 U/L Creatine Kinase MB 1.6 ng/ml Creatine Kinase MB Ratio 2.1 Troponin I < 0.015 ng/ml Total Protein 8.0 gm/dl Albumin 3.1 gm/dl Lipase 78 U/L Thyroid Stimulating Hormone (TSH) 9.040 uIu/ml Urine Color YELLOW Urine Appearance CLOUDY Urine pH 7.5 Urine Specific [place] 1.012 Urine Protein NEG Urine Glucose (UA) NEG Urine Ketones NEG Urine Occult Blood NEG Urine Nitrite POS Urine Bilirubin NEG Urine Urobilinogen NEG Urine Leukocyte Esterase LARGE Urine WBC (Auto) >30 /hpf Urine RBC (Auto) 10-30 /hpf Urine Hyaline Casts (Auto) 1-5 /lpf Urine Epithelial Cells (Auto) 0-5 /lpf Urine Bacteria (Auto) 4+ Chemistry Specimen Hemolysis Impression (1) Acute renal failure (2) Hyperkalemia (3) Hypomagnesemia (4) Seizure (5) Ovarian cancer Dora Garsia is a 52-year-old female with acute on chronic renal insufficiency. Baseline creatinine is 1.3 mg/dL. CKD attributed to igiugig based chemotherapy. Medical history is notable serous ovarian/fallopian tube cancer. The patient has high output colostomy. She has chronic hypokalemia for which she was maintained on a daily potassium supplement. She was admitted with witnessed seizure and severe electrolyte abnormalities including hyperkalemia and hypomagnesemia. Renal ultrasound documented chronic cortical changes but no evidence of obstruction. The patient has an indwelling Moffett catheter which will remain intake. TAJ can be attributed to ATN and prerenal azotemia. She is tolerating IVF well. She has a mild metabolic acidosis which will be monitored. Bicarbonate replacement will be provided as needed. I/O's will be documented. I would strive to maintain a positive fluid balance of at least 1.5 liters over the next 12 hours. Hyperkalemia responding to treatment. Hold additional Kayexalate at this time. Continue to provide hydration and replacement HCO3 as needed. Hypomagnesemia improving with replacement. I suspect metabolic abnormalities are related to GI losses and poor oral intake. BP is low and Lopressor should be held. Recommendations -- Stop standing Kayexalate. -- Start HCO3 replacement with 650 mEq TID. -- Monitor metabolic profile q4-6 hours. 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 -- Document strict I/O's. -- Obtain UA/microscopy. -- Continue NS @ 125 ml/hr. Goal to encourage at least 1.5 L positive fluid balance over next 24 hours. -- Hold metoprolol. -- Avoid oral replacement of mangesium. -- I discussed potential indications for dialysis with the patient today. Will obtain outpatient records from Dr. Toth. -- Obtain recent records from [facility].
[2017-09-01] MEDS: ENOXAPARIN 60 MG/0.6 ML SYR SQ SCH (18:59)
[2017-09-01] MEDS: BOOST BREEZE NUTRITION DRINK 1 BOX PO SCH (18:59)
[2017-09-01] MEDS: ALBUT/IPRATROP 3MG/0.5MG NEB 3 ML VIAL INH SCH ×2 (20:05→21:07)
[2017-09-01 20:25] VITALS: BP 122/72; PULSE 98; TEMP 36.3; O2SAT 100
[2017-09-01] MEDS: SODIUM BICARBONATE 650 MG TAB PO SCH (20:46)
[2017-09-01] MEDS: OLANZAPINE 2.5 MG TAB PO SCH (20:47)
[2017-09-01] MEDS ORDERED: BOOST PLUS VANILLA PO SCH (21:00)
[2017-09-01 21:09] LABS: CALCIUM 6.8 mg/dl (8.5-10.1); CREATININE 2.45 mg/dl (0.60-1.20); POTASSIUM 4.9 mmol/L (3.5-5.1)
[2017-09-01] MEDS ORDERED: LORAZEPAM INJ 1 MG in SYRINGE 0.5 ML IV STA (21:25)
[2017-09-01] MEDS ORDERED: MAGNESIUM SULFATE 1GM / D5W 1 GM in PREMIXED IN D5W 100 ML IV ONE (21:30)
[2017-09-01] MEDS ORDERED: DEXTROSE 50% 50 ML SYR IV ONE ×2 (21:30→22:15)
[2017-09-01] MEDS ORDERED: NURSING VERBAL MED ORDER ONE (22:00)
[2017-09-01 23:05] VITALS: BP 95/62; PULSE 94; TEMP 36.8; O2SAT 93
[2017-09-02] VITALS (11 sets, daily range): BP systolic 97–103; BP diastolic 63–70; PULSE 96–112; TEMP 36.5–37.1; O2SAT 96–100
[2017-09-02 00:38] LABS: CALCIUM 6.6 mg/dl (8.5-10.1); CREATININE 2.37 mg/dl (0.60-1.20); POTASSIUM 3.9 mmol/L (3.5-5.1)
[2017-09-02] MEDS: SODIUM CHLORIDE 0.9% 1000ML 1,000 ML IV SCH ×3 (01:20→22:31)
[2017-09-02 04:16] LABS: BASO % 0.4 %; BASO ABS # 0.03 K/uL (0-0.2); EOS % 1.3 %; HEMATOCRIT 28.7 % (37-47); HEMOGLOBIN 9.8 g/dL (12.0-16.0); IG# 0.05 K/uL (0.00-0.02); LYMPH % 25.9 %; MEAN CELL VOLUME 89.1 fL (80-100); MEAN CORPUSCULAR HEMOGLOBIN 30.4 pg (25-34); MEAN CORPUSCULAR HGB CONC 34.1 g/dl (32-36); MEAN PLATELET VOLUME 9.9 fL (7.4-10.4); MONO ABS # 0.93 K/uL (0.11-0.59); NEUT % 59.8 %; NEUT ABS # 4.62 K/uL (1.4-6.5); PLATELET COUNT 176 K/uL (130-400); RED CELL DISTRIBUTION WIDTH CV 14.9 % (11.5-14.5); RED CELL DISTRIBUTION WIDTH SD 49.2 fL (36.4-46.3); WHITE BLOOD COUNT 7.73 K/uL (4.8-10.8)
[2017-09-02 04:38] LABS: ALBUMIN 2.7 gm/dl (3.4-5.0); CALCIUM 6.4 mg/dl (8.5-10.1); CREATININE 2.22 mg/dl (0.60-1.20); POTASSIUM 3.8 mmol/L (3.5-5.1)
[2017-09-02 04:41] LABS: PHOSPHORUS 5.3 mg/dl (2.5-4.9); TOTAL PROTEIN 7.2 gm/dl (6.4-8.2)
[2017-09-02] MEDS: ALBUT/IPRATROP 3MG/0.5MG NEB 3 ML VIAL INH SCH ×2 (07:29→11:28)
[2017-09-02] MEDS: BOOST BREEZE NUTRITION DRINK 1 BOX PO SCH ×3 (08:24→17:15)
[2017-09-02] MEDS: PANTOprazole SOD 40 MG TAB PO SCH (08:24)
[2017-09-02] MEDS: LACTOBACILLUS ACIDOPHILUS 1 GM PACK PO SCH ×3 (08:24→17:00)
[2017-09-02] MEDS: SODIUM BICARBONATE 650 MG TAB PO SCH ×3 (08:25→21:08)
[2017-09-02 09:15] LABS: CALCIUM 7.1 mg/dl (8.5-10.1); CREATININE 2.1 mg/dl (0.60-1.20); POTASSIUM 3.5 mmol/L (3.5-5.1)
--- NOTE | 2017-09-02 10:10 | Neurology Consultation ---
Neurology Consultation Date of Consultation: Sep 02, 2017. Attending Physician: Jimmy Vizcarra D.O. Primary Care Physician: No Doctor, Assigned Reason for Consultation: Consultation for seizure History of Present Illness Source: patient, hospital records This is a 52-year-old female who presents after seizure-like activity. Patient was at [facility] when activity was observed reportedly for 5 minutes. Described as generalized shaking. Upon evaluation in the emergency room patient was found to have multiple electrolyte abnormalities including low magnesium 0.4 and an elevated potassium of 6.8. Sodium was also mildly low at 131. TSH was also noted to be significantly elevated at 9.04. Creatinine was elevated and patient was noted to have acute on chronic renal insufficiency. Per report the patient had decreased appetite and oral intake the past few days. While there was no notation of any altered mental status before this event , the patient did have episode of increased agitation in the emergency room. There was no witnessed seizure activity. She was treated with Ativan for may be presumed unwitnessed seizure. I'm not completely clear what her mental status and orientation was at [facility] before this seizure event. No additional reports of seizure-like activity since admission. Electrolytes are in the process of being treated and nephrology was consulted. Patient denies any personal history or family history of seizures. 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 Social History Currently residing at [facility] for rehabilitation after her small bowel obstruction status post colostomy and critical care myopathy. Marital Status: Housing Status: other ([facility]) Occupation Status: disabled Allergies Coded Allergies: No Known Allergies (Unverified , 09/01/17) Current Inpatient Medications Current Inpatient Medications Medications (Trade) Dose Ordered Sig/Balaji Route Start Time Stop Time Status Last Admin Dose Admin Enoxaparin Sodium (Lovenox Inj) 60 mg DAILY@1800 SQ 09/01/17 18:00 10/01/17 17:59 09/01/17 18:59 60 MG Albuterol/ Ipratropium (Duoneb) 3 ml QIDR INH 09/01/17 16:00 10/01/17 15:59 09/02/17 07:29 3 ML Olanzapine (Zyprexa Tab) 2.5 mg HS PO 09/01/17 21:00 10/01/17 20:59 09/01/17 20:47 2.5 MG Ondansetron HCl (Zofran Tab) 4 mg Q8 PRN PO 09/01/17 12:00 10/01/17 11:59 Oxycodone HCl (Roxicodone Immediate Rel Tab) 5 mg Q3H PRN PO 09/01/17 12:00 09/15/17 11:59 Pantoprazole Sodium (Protonix Tab) 40 mg DAILY PO 09/02/17 09:00 10/02/17 08:59 09/02/17 08:24 40 MG Sodium Chloride 1,000 ml @ 125 mls/hr Q8H IV 09/01/17 11:59 10/01/17 11:58 09/02/17 08:25 125 MLS/HR Acetaminophen (Tylenol Tab) 650 mg Q4H PRN PO 09/01/17 12:00 10/01/17 11:59 Al Hydrox/Mg Hydrox/Simethicone (Maalox Max Susp) 15 ml Q4H PRN PO 09/01/17 12:00 10/01/17 11:59 Magnesium Hydroxide (Milk Of Magnesia Susp) 30 ml Q12H PRN PO 09/01/17 12:00 10/01/17 11:59 Zolpidem Tartrate (Ambien Tab) 5 mg HSZ PRN PO 09/01/17 12:00 10/01/17 11:59 Ondansetron HCl (Zofran Inj) 4 mg Q6H PRN IV 09/01/17 12:00 10/01/17 11:59 Polyethylene (Miralax Powder Packet) 17 gm DAILY PRN PO 09/01/17 12:00 10/01/17 11:59 Ciprofloxacin/ Dextrose 400 mg/ Prmx 200 ml @ 100 mls/hr DAILY@1600 IV 09/01/17 16:00 09/11/17 15:59 09/01/17 16:39 100 MLS/HR Lactobacillus Acidophilus (Lactinex Granules Pack) 1 gm TIDM PO 09/01/17 17:00 10/01/17 17:59 09/02/17 08:24 1 GM Lorazepam (Ativan Inj) 2 mg Q2H PRN IV 09/01/17 12:15 10/01/17 12:14 Lorazepam 2 mg/ Syringe 2 ml @ 1 mls/min Q2H PRN IV 09/01/17 14:15 10/01/17 14:14 Enteral Nutritional Formula (Boost Breeze Nutritional Drink) 1 box TIDM PO 09/01/17 17:00 10/01/17 16:59 09/02/17 08:24 1 BOX Sodium Bicarbonate (Sodium Bicarbonate Tab) 650 mg TID PO 09/01/17 21:00 10/01/17 20:59 09/02/17 08:25 650 MG Bupropion HCl (Wellbutrin Tab) 25 mg BID PO 09/02/17 09:00 10/01/17 20:59 09/02/17 08:25 25 MG Review of Systems Complete review of systems otherwise negative. Patient denies any pain. Reports dizziness if she stands up too quickly. Denies any new numbness or weakness. Denies any abnormal headaches. Denies any vision changes. She reports that she feels like she is at her baseline this morning Physical Exam Vital Signs (Past 24 Hrs): Date Time Temp Pulse Resp B/P (MAP) Pulse Ox O2 Delivery O2 Flow Rate FiO2 09/02/17 07:29 96 16 97 Room Air 09/02/17 07:09 36.7 100 18 102/69 (80) 99 Room Air 09/02/17 04:04 37.1 105 17 97/64 (75) 97 Room Air 09/02/17 04:00 96 Room Air 09/02/17 00:00 96 Room Air 09/01/17 23:05 36.8 94 17 95/62 (73) 93 Room Air 09/01/17 20:25 36.3 98 16 122/72 (89) 100 Room Air 09/01/17 20:00 Room Air 09/01/17 16:00 Room Air 09/01/17 14:20 36.5 96 20 99/66 (77) 99 Room Air 09/01/17 13:50 92 18 108/76 96 Nebulizer 8.0 09/01/17 13:11 80 16 99/66 96 Room Air 09/01/17 12:45 80 09/01/17 11:34 77 24 100/66 96 Room Air 09/01/17 11:21 96 Room Air 09/01/17 10:05 83 16 100 Gen.: Patient is alert and sitting in bed, in no acute distress. HEENT: Normocephalic /atraumatic, no scleral icterus Heart: Regular rate and rhythm Extremities: No gross deformities or rashes noted Neurological examination: Mental status: Patient is alert and oriented x1. Incorrectly stated that she was at school. He correctly stated that the year was 2017, but reported the month was September and that the day of the week was Wednesday. Attention and concentration normal for the situation. Poor fund of knowledge. Impaired Remote and recent memory. Speech is fluent without any dysarthria or aphasia noted Cranial nerve: Funduscopic examination was unremarkable. No papilledema. Pupils equally round and reactive to light. Extraocular muscles intact without nystagmus. No facial asymmetry noted. Facial sensation intact. Tongue is midline. Good palatal elevation. Good shoulder shrug bilaterally. Hearing grossly intact to voice. Strength: Strength is full and antigravity with decent resistance in all extremities. There is no arm drift. Tone is normal. Sensation: Grossly intact to light touch in all extremities. Deep tendon reflexes: +1 in bilateral biceps, brachioradialis and patellar. Toes were downgoing to plantar stimulation Coordination: Patient had good finger to nose without dysmetria. Does have some action tremors with outstretched arms and finger to nose testing. Station within the bed was normal Laboratory Results Past 24 Hours: 09/02/17 03:54 Red Blood Count 3.22, Mean Corpuscular Volume 89.1, Mean Corpuscular Hemoglobin 30.4, Mean Corpuscular Hemoglobin Concent 34.1, Mean Platelet Volume 9.9, Neutrophils (%) (Auto) 59.8, Lymphocytes (%) (Auto) 25.9, Monocytes (%) (Auto) 12.0, Eosinophils (%) (Auto) 1.3, Basophils (%) (Auto) 0.4, Neutrophils # (Auto ) 4.62, Lymphocytes # (Auto) 2.00, Monocytes # (Auto) 0.93, Eosinophils # (Auto ) 0.10, Basophils # (Auto) 0.03 09/02/17 08:30 Test 09/01/17 10:30 09/01/17 13:30 09/01/17 22:46 09/02/17 03:54 Urine Color YELLOW Urine Appearance CLOUDY (CLEAR) Urine pH 7.5 (4.5-7.5) Urine Specific Anderson 1.012 (1.000-1.030) Urine Protein NEG (NEG) Urine Glucose (UA) NEG (NEG) Urine Ketones NEG (NEG) Urine Occult Blood NEG (NEG) Urine Nitrite POS (NEG) Urine Bilirubin NEG (NEG) Urine Urobilinogen NEG (NEG) Urine Leukocyte Esterase LARGE (NEG) Urine WBC (Auto) >30 /hpf (0-5) Urine RBC (Auto) 10-30 /hpf (0-4) Urine Hyaline Casts (Auto) 1-5 /lpf (0-5) Urine Epithelial Cells (Auto) 0-5 /lpf (0-5) Urine Bacteria (Auto) 4+ (NEG) Chemistry Specimen Hemolysis Bedside Glucose 157 mg/dl (70-90) White Blood Count 7.73 K/uL (4.8-10.8) Red Blood Count 3.22 M/uL (4.2-5.4) Hemoglobin 9.8 g/dL (12.0-16.0) Hematocrit 28.7 % (37-47) Mean Corpuscular Volume 89.1 fL (80-100) Mean Corpuscular Hemoglobin 30.4 pg (25-34) Mean Corpuscular Hemoglobin Concent 34.1 g/dl (32-36) Platelet Count 176 K/uL (130-400) Mean Platelet Volume 9.9 fL (7.4-10.4) Neutrophils (%) (Auto) 59.8 % Lymphocytes (%) (Auto) 25.9 % Monocytes (%) (Auto) 12.0 % Eosinophils (%) (Auto) 1.3 % Basophils (%) (Auto) 0.4 % Neutrophils # (Auto) 4.62 K/uL (1.4-6.5) Lymphocytes # (Auto) 2.00 K/uL (1.2-3.4) Monocytes # (Auto) 0.93 K/uL (0.11-0.59) Eosinophils # (Auto) 0.10 K/uL (0-0.5) Basophils # (Auto) 0.03 K/uL (0-0.2) RDW Standard Deviation 49.2 fL (36.4-46.3) RDW Coefficient of Variation 14.9 % (11.5-14.5) Immature Granulocyte % (Auto) 0.6 % Immature Granulocyte # (Auto) 0.05 K/uL (0.00-0.02) Phosphorus Level 5.3 mg/dl (2.5-4.9) Magnesium Level 1.4 mg/dl (1.8-2.4) Total Bilirubin 0.2 mg/dl (0.2-1) Aspartate Amino Transf (AST/SGOT) 29 U/L (15-37) Alanine Aminotransferase (ALT/SGPT) 38 U/L (12-78) Alkaline Phosphatase 159 U/L (45-117) Total Protein 7.2 gm/dl (6.4-8.2) Albumin 2.7 gm/dl (3.4-5.0) Globulin 4.5 gm/dl (2.5-4.0) Albumin/Globulin Ratio 0.6 (0.9-2) Test 09/02/17 08:30 Anion Gap 10.0 mmol/L (3-11) Est Creatinine Clear Calc Drug Dose 26.7 ml/min Estimated GFR () 30.6 Estimated GFR (Non- 26.4 BUN/Creatinine Ratio 9.2 (10-20) Calcium Level 7.1 mg/dl (8.5-10.1) Imaging CT of the head report and images reviewed by myself and unremarkable. Impression This is a 52-year-old female with a witnessed generalized tonic clonic type seizure. Likely provoked seizure secondary to metabolic and electrolyte abnormalities including hypomagnesemia and hyperkalemia. 2) Encephalopathy. Uncertain what her recent baseline mental status has been at [facility]. Certainly could have encephalopathy secondary to metabolic changes and derangements. Plan I ordered an EEG this morning for further evaluation of seizure. EEG was normal with no signs of seizure activity. Recommend MRI of the brain for further evaluation of encephalopathy and to rule out other causes for seizures such as masses or strokes. Correction of hyperkalemia and hyper-magnesium per hospitalist and nephrology consult. TSH was also significantly elevated at 9 on admission. Further workup and evaluation per hospitalist team. Caution with Bupropion, as this can cause a lower seizure threshold. No need for antiepileptic medication with a single seizure event that was likely provoked from metabolic derangements Thank you for allowing me to participate in this patient's care. If there is any questions or concerns, feel free to call/page me.
--- NOTE | 2017-09-02 10:14 | EEG Procedure Note ---
EEG Procedure Note Date of Service Sep 02, 2017. Start / End Times Start Time: 8:30 AM End Time: 8:50 AM Referring Physician Lizbeth Caceres History This is a 52-year-old female who presented with witnessed seizure. EEG for further evaluation of possible seizure etiology. Home Medication List Scheduled Acetaminophen (Tylenol), 500 MG PO Q4H Bupropion (Wellbutrin), 50 MG PO BID Cholecalciferol (Vitamin D3), 1 CAP PO DAILY Diphenoxylate W/ Atropine (Lomotil), 1 TAB PO QID Docusate Sodium (Colace), 1 CAP PO BID Enoxaparin (Lovenox), 60 MG SQ Q12H Ipratropium-Albuterol (Duoneb), 1 TREATMENT INH Q4H Metoprolol Tartrate (Lopressor) (Lopressor), 25 MG PO BID Olanzapine (Zyprexa), 0.5 TAB PO HS Opium Tincture (Opium Tincture), 0.4 ML PO Q6H Pantoprazole (Protonix), 40 MG PO DAILY Potassium Ext Rel (Klor-Con), 20 MEQ PO BID Scheduled PRN Lactulose (Encephalopathy) (Lactulose), 30 ML PO for Constipation Ondansetron Hcl (Zofran), 4 MG PO Q8 PRN for Nausea Oxycodone Ir (Roxicodone Ir), 5 MG PO Q3H PRN for Severe Pain Inpatient Medication List Current Inpatient Medications Medications (Trade) Dose Ordered Sig/Balaji Route Start Time Stop Time Status Last Admin Dose Admin Enoxaparin Sodium (Lovenox Inj) 60 mg DAILY@1800 SQ 09/01/17 18:00 10/01/17 17:59 09/01/17 18:59 60 MG Albuterol/ Ipratropium (Duoneb) 3 ml QIDR INH 09/01/17 16:00 10/01/17 15:59 09/02/17 07:29 3 ML Olanzapine (Zyprexa Tab) 2.5 mg HS PO 09/01/17 21:00 10/01/17 20:59 09/01/17 20:47 2.5 MG Ondansetron HCl (Zofran Tab) 4 mg Q8 PRN PO 09/01/17 12:00 10/01/17 11:59 Oxycodone HCl (Roxicodone Immediate Rel Tab) 5 mg Q3H PRN PO 09/01/17 12:00 09/15/17 11:59 Pantoprazole Sodium (Protonix Tab) 40 mg DAILY PO 09/02/17 09:00 10/02/17 08:59 09/02/17 08:24 40 MG Sodium Chloride 1,000 ml @ 125 mls/hr Q8H IV 09/01/17 11:59 10/01/17 11:58 09/02/17 08:25 125 MLS/HR Acetaminophen (Tylenol Tab) 650 mg Q4H PRN PO 09/01/17 12:00 10/01/17 11:59 Al Hydrox/Mg Hydrox/Simethicone (Maalox Max Susp) 15 ml Q4H PRN PO 09/01/17 12:00 10/01/17 11:59 Magnesium Hydroxide (Milk Of Magnesia Susp) 30 ml Q12H PRN PO 09/01/17 12:00 10/01/17 11:59 Zolpidem Tartrate (Ambien Tab) 5 mg HSZ PRN PO 09/01/17 12:00 10/01/17 11:59 Ondansetron HCl (Zofran Inj) 4 mg Q6H PRN IV 09/01/17 12:00 10/01/17 11:59 Polyethylene (Miralax Powder Packet) 17 gm DAILY PRN PO 09/01/17 12:00 10/01/17 11:59 Ciprofloxacin/ Dextrose 400 mg/ Prmx 200 ml @ 100 mls/hr DAILY@1600 IV 09/01/17 16:00 09/11/17 15:59 09/01/17 16:39 100 MLS/HR Lactobacillus Acidophilus (Lactinex Granules Pack) 1 gm TIDM PO 09/01/17 17:00 10/01/17 17:59 09/02/17 08:24 1 GM Lorazepam (Ativan Inj) 2 mg Q2H PRN IV 09/01/17 12:15 10/01/17 12:14 Lorazepam 2 mg/ Syringe 2 ml @ 1 mls/min Q2H PRN IV 09/01/17 14:15 10/01/17 14:14 Enteral Nutritional Formula (Boost Breeze Nutritional Drink) 1 box TIDM PO 09/01/17 17:00 10/01/17 16:59 09/02/17 08:24 1 BOX Sodium Bicarbonate (Sodium Bicarbonate Tab) 650 mg TID PO 09/01/17 21:00 10/01/17 20:59 09/02/17 08:25 650 MG Bupropion HCl (Wellbutrin Tab) 25 mg BID PO 09/02/17 09:00 10/01/17 20:59 09/02/17 08:25 25 MG Description This is a 21 electrode EEG with a single channel dedicated to limited EKG. The electrodes were placed in accordance with the International 10-20 system. Intermittent movement artifact noted. At the start of this recording the patient was and reported altered mental status. Background was well organized with a symmetric moderate amplitude mix of alpha and beta frequencies. There was a symmetric well-formed posterior dominant rhythm of 8-9 Hz that was reactive to eye opening and closure. Hyperventilation and photic stimulation were not done. There was no state changes or sleep transients. Interpretation This is a normal awake only routine EEG There was no electrographic seizures or epileptiform discharges. Clinical Correlation A normal EEG does not rule out epilepsy if there is a strong clinical suspicion.
--- NOTE | 2017-09-02 10:54 | Nephrology Progress Note ---
Nephrology Progress Note Date of Service Sep 02, 2017. Chief Complaint Acute renal insufficiency, hyperkalemia Subjective Dora was confused and slightly agitated overnight. She was not able to recall our conversation this morning. She denies pain. No fevers or chills. Appetite remains poor. Ostomy output brown and liquid. Review of Systems A complete review of systems was performed. Pertinent positives are noted above. All other systems are negative. Vital Signs Last 8 Hrs Date Time Temp Pulse Resp B/P (MAP) Pulse Ox O2 Delivery O2 Flow Rate FiO2 09/02/17 07:29 96 16 97 Room Air 09/02/17 07:09 36.7 100 18 102/69 (80) 99 Room Air 09/02/17 04:04 37.1 105 17 97/64 (75) 97 Room Air 09/02/17 04:00 96 Room Air Last Recorded Weight Weight (Kilograms): 54.000 Physical Exam General Appearance: WD/WN, no apparent distress Head: normocephalic, atraumatic Eyes: normal inspection, sclerae normal ENT: normal ENT inspection, pharynx normal Neck: supple, no JVD Respiratory/Chest: lungs clear, no respiratory distress, no accessory muscle use Cardiovascular: regular rate, rhythm, no gallop Abdomen/GI: non tender, soft, + pertinent finding (ostomy) Genitourinary - Female: + pertinent finding (Moffett intact) Extremities/Musculoskelatal: normal inspection, no pedal edema Neurologic/Psych: alert, normal mood/affect Family History Diabetes mellitus Heart disease Hypertension Stroke Patient's mother was on hemodialysis for [address] [facility] before she at the age of 73. Social History Marital Status: Occupation: disabled Lives in a correction in [place], [place]. Laboratory Results Past 24 Hours 09/02/17 03:54 Red Blood Count 3.22, Mean Corpuscular Volume 89.1, Mean Corpuscular Hemoglobin 30.4, Mean Corpuscular Hemoglobin Concent 34.1, Mean Platelet Volume 9.9, Neutrophils (%) (Auto) 59.8, Lymphocytes (%) (Auto) 25.9, Monocytes (%) (Auto) 12.0, Eosinophils (%) (Auto) 1.3, Basophils (%) (Auto) 0.4, Neutrophils # (Auto ) 4.62, Lymphocytes # (Auto) 2.00, Monocytes # (Auto) 0.93, Eosinophils # (Auto ) 0.10, Basophils # (Auto) 0.03 09/01/17 13:30 09/01/17 15:59 09/01/17 20:05 09/01/17 23:59 09/02/17 03:54 09/02/17 08:30 Test 09/01/17 13:30 09/01/17 15:59 09/01/17 20:05 09/01/17 21:13 Anion Gap 11.0 mmol/L (3-11) 12.0 mmol/L (3-11) 10.0 mmol/L (3-11) Est Creatinine Clear Calc Drug Dose 24.7 ml/min 23.5 ml/min 22.9 ml/min Estimated GFR () 27.8 26.2 25.4 Estimated GFR (Non- 24.0 22.6 21.9 BUN/Creatinine Ratio 10.7 (10-20) 9.7 (10-20) 9.3 (10-20) Calcium Level 6.7 mg/dl (8.5-10.1) 7.0 mg/dl (8.5-10.1) 6.8 mg/dl (8.5-10.1) Magnesium Level 1.4 mg/dl (1.8-2.4) 1.0 mg/dl (1.8-2.4) Chemistry Specimen Hemolysis Bedside Glucose 110 mg/dl (70-90) Test 09/01/17 22:46 09/01/17 23:59 09/02/17 03:54 09/02/17 08:30 Bedside Glucose 157 mg/dl (70-90) Anion Gap 9.0 mmol/L (3-11) 11.0 mmol/L (3-11) 10.0 mmol/L (3-11) Est Creatinine Clear Calc Drug Dose 23.7 ml/min 25.3 ml/min 26.7 ml/min Estimated GFR () 26.4 28.6 30.6 Estimated GFR (Non- 22.8 24.7 26.4 BUN/Creatinine Ratio 9.0 (10-20) 9.2 (10-20) 9.2 (10-20) Calcium Level 6.6 mg/dl (8.5-10.1) 6.4 mg/dl (8.5-10.1) 7.1 mg/dl (8.5-10.1) White Blood Count 7.73 K/uL (4.8-10.8) Red Blood Count 3.22 M/uL (4.2-5.4) Hemoglobin 9.8 g/dL (12.0-16.0) Hematocrit 28.7 % (37-47) Mean Corpuscular Volume 89.1 fL (80-100) Mean Corpuscular Hemoglobin 30.4 pg (25-34) Mean Corpuscular Hemoglobin Concent 34.1 g/dl (32-36) Platelet Count 176 K/uL (130-400) Mean Platelet Volume 9.9 fL (7.4-10.4) Neutrophils (%) (Auto) 59.8 % Lymphocytes (%) (Auto) 25.9 % Monocytes (%) (Auto) 12.0 % Eosinophils (%) (Auto) 1.3 % Basophils (%) (Auto) 0.4 % Neutrophils # (Auto) 4.62 K/uL (1.4-6.5) Lymphocytes # (Auto) 2.00 K/uL (1.2-3.4) Monocytes # (Auto) 0.93 K/uL (0.11-0.59) Eosinophils # (Auto) 0.10 K/uL (0-0.5) Basophils # (Auto) 0.03 K/uL (0-0.2) RDW Standard Deviation 49.2 fL (36.4-46.3) RDW Coefficient of Variation 14.9 % (11.5-14.5) Immature Granulocyte % (Auto) 0.6 % Immature Granulocyte # (Auto) 0.05 K/uL (0.00-0.02) Phosphorus Level 5.3 mg/dl (2.5-4.9) Magnesium Level 1.4 mg/dl (1.8-2.4) Total Bilirubin 0.2 mg/dl (0.2-1) Aspartate Amino Transf (AST/SGOT) 29 U/L (15-37) Alanine Aminotransferase (ALT/SGPT) 38 U/L (12-78) Alkaline Phosphatase 159 U/L (45-117) Total Protein 7.2 gm/dl (6.4-8.2) Albumin 2.7 gm/dl (3.4-5.0) Globulin 4.5 gm/dl (2.5-4.0) Albumin/Globulin Ratio 0.6 (0.9-2) Allergies Coded Allergies: No Known Allergies (Unverified , 09/01/17) Medications Current Inpatient Medications Medications (Trade) Dose Ordered Sig/Balaji Route Start Time Stop Time Status Last Admin Dose Admin Enoxaparin Sodium (Lovenox Inj) 60 mg DAILY@1800 SQ 09/01/17 18:00 10/01/17 17:59 09/01/17 18:59 60 MG Albuterol/ Ipratropium (Duoneb) 3 ml QIDR INH 09/01/17 16:00 10/01/17 15:59 09/02/17 07:29 3 ML Olanzapine (Zyprexa Tab) 2.5 mg HS PO 09/01/17 21:00 10/01/17 20:59 09/01/17 20:47 2.5 MG Ondansetron HCl (Zofran Tab) 4 mg Q8 PRN PO 09/01/17 12:00 10/01/17 11:59 Oxycodone HCl (Roxicodone Immediate Rel Tab) 5 mg Q3H PRN PO 09/01/17 12:00 09/15/17 11:59 Pantoprazole Sodium (Protonix Tab) 40 mg DAILY PO 09/02/17 09:00 10/02/17 08:59 09/02/17 08:24 40 MG Sodium Chloride 1,000 ml @ 125 mls/hr Q8H IV 09/01/17 11:59 10/01/17 11:58 09/02/17 08:25 125 MLS/HR Acetaminophen (Tylenol Tab) 650 mg Q4H PRN PO 09/01/17 12:00 10/01/17 11:59 Al Hydrox/Mg Hydrox/Simethicone (Maalox Max Susp) 15 ml Q4H PRN PO 09/01/17 12:00 10/01/17 11:59 Magnesium Hydroxide (Milk Of Magnesia Susp) 30 ml Q12H PRN PO 09/01/17 12:00 10/01/17 11:59 Zolpidem Tartrate (Ambien Tab) 5 mg HSZ PRN PO 09/01/17 12:00 2/2/18 11:59 Ondansetron HCl (Zofran Inj) 4 mg Q6H PRN IV 09/01/17 12:00 10/01/17 11:59 Polyethylene (Miralax Powder Packet) 17 gm DAILY PRN PO 09/01/17 12:00 10/01/17 11:59 Ciprofloxacin/ Dextrose 400 mg/ Prmx 200 ml @ 100 mls/hr DAILY@1600 IV 09/01/17 16:00 09/11/17 15:59 09/01/17 16:39 100 MLS/HR Lactobacillus Acidophilus (Lactinex Granules Pack) 1 gm TIDM PO 09/01/17 17:00 10/01/17 17:59 09/02/17 08:24 1 GM Lorazepam (Ativan Inj) 2 mg Q2H PRN IV 09/01/17 12:15 10/01/17 12:14 Lorazepam 2 mg/ Syringe 2 ml @ 1 mls/min Q2H PRN IV 09/01/17 14:15 10/01/17 14:14 Enteral Nutritional Formula (Boost Breeze Nutritional Drink) 1 box TIDM PO 09/01/17 17:00 10/01/17 16:59 09/02/17 08:24 1 BOX Sodium Bicarbonate (Sodium Bicarbonate Tab) 650 mg TID PO 09/01/17 21:00 10/01/17 20:59 09/02/17 08:25 650 MG Bupropion HCl (Wellbutrin Tab) 25 mg BID PO 09/02/17 09:00 10/01/17 20:59 09/02/17 08:25 25 MG Impression (1) Acute renal failure (2) Hyperkalemia (3) Hypomagnesemia (4) Seizure (5) Ovarian cancer Dora Garsia is a 52-year-old female with acute on chronic renal insufficiency. Baseline creatinine is 1.3 mg/dL. CKD attributed to [place] based chemotherapy. Medical history is notable serous ovarian/fallopian tube cancer. The patient has high output ostomy. She was admitted with witnessed seizure and severe electrolyte abnormalities including hyperkalemia and hypomagnesemia. Renal ultrasound documented chronic cortical changes but no evidence of obstruction. The patient has an indwelling Moffett catheter which will remain intake. TAJ can be attributed to ATN and prerenal azotemia. She is tolerating IVF well. We will continue saline and HCO3 replacement with close monitoring. Hyperkalemia responding to treatment. Hypomagnesemia improving with replacement. I suspect metabolic abnormalities are related to GI losses and poor oral intake. BP is low and Lopressor has been held. Recommendations -- Continue HCO3 replacement with 650 mEq TID. -- Monitor metabolic profile twice daily -- Document I/O's -- Continue NS @ 125 ml/hr -- Hold metoprolol -- Monitor and replace magnesium daily
[2017-09-02 12:36] LABS: CALCIUM 6.6 mg/dl (8.5-10.1); POTASSIUM 3.4 mmol/L (3.5-5.1)
[2017-09-02] MEDS ORDERED: NURSING VERBAL MED ORDER ONE (13:30)
[2017-09-02] MEDS ORDERED: POTASSIUM CHLORIDE 20 MEQ TABCR PO ONE (14:00)
[2017-09-02] MEDS: MAGNESIUM SULFATE 1GM / D5W 1 GM in PREMIXED IN D5W 100 ML IV SCH ×2 (14:07→15:15)
[2017-09-02] MEDS ORDERED: ALBUT/IPRATROP 3MG/0.5MG NEB 3 ML VIAL INH PRN (14:45)
[2017-09-02] MEDS ORDERED: ALBUT/IPRATROP 3MG/0.5MG NEB 3 ML VIAL INH SCH (16:00)
[2017-09-02 16:20] LABS: CALCIUM 6.7 mg/dl (8.5-10.1); CREATININE 2.16 mg/dl (0.60-1.20); POTASSIUM 3.6 mmol/L (3.5-5.1)
[2017-09-02] MEDS: CIPROFLOXACIN / D5W 400 MG in PREMIXED IN D5W 200 ML IV SCH (16:38)
[2017-09-02] MEDS: ENOXAPARIN 60 MG/0.6 ML SYR SQ SCH (17:30)
[2017-09-02] MEDS ORDERED: DICLOFENAC SOD 1% GEL 100 GM TUBE EXT PRN (19:45)
[2017-09-02 20:44] LABS: CALCIUM 6.8 mg/dl (8.5-10.1); CREATININE 2.08 mg/dl (0.60-1.20); POTASSIUM 3.9 mmol/L (3.5-5.1)
--- NOTE | 2017-09-02 21:01 | Progress Note ---
Subjective Date of Service: Sep 02, 2017. Subjective Pt evaluation today including: conversation w/ patient, physical exam, chart review, lab review, review of studies, review of inpatient medication list Problem List Medical Problems: (1) Acute renal failure Status: Acute (2) Seizure Status: Acute Review of Systems Constitutional: No see HPI, No fever, No chills, No sweats, No weight loss, No weakness, No fatigue, No problem reported Eyes: No see HPI, No worsening of vision, No eye pain, No redness, No discharge , No diplopia, No problem reported Respiratory: No see HPI, No cough, No sputum, No wheezing, No shortness of breath, No dyspnea on exertion, No dyspnea at rest, No hemoptysis, No problem reported Cardiac: No see HPI, No chest pain, No orthopnea, No PND, No edema, No claudication, No palpitations, No problem reported Breast: No see HPI, No breast lump, No change in shape, No nipple discharge, No breast pain, No problem reported Abdomen: No see HPI, No pain, No nausea, No vomiting, No diarrhea, No constipation, No GI bleeding, No problem reported Musculoskeletal: No see HPI, No joint pain, No muscle pain, No swelling, No calf pain, No problem reported Female : No see HPI, No dysuria, No urinary frequency, No hematuria, No incontinence, No abnormal vaginal bleeding, No vaginal discharge, No problem reported Neurologic: No see HPI, No memory loss, No paralysis, No weakness, No numbness/ tingling, No vertigo, No balance problems, No problem reported Heme: No see HPI, No abnormal bleeding/bruising, No clotting problems, No swollen lymph nodes, No night sweats, No problem reported Objective Vital Signs Date Time Temp Pulse Resp B/P (MAP) Pulse Ox O2 Delivery O2 Flow Rate FiO2 09/02/17 16:00 99 Room Air 09/02/17 12:01 99 Room Air 09/02/17 11:29 112 14 98 Room Air 09/02/17 11:03 36.5 112 18 100/70 (80) 100 Room Air 09/02/17 08:00 99 Room Air 09/02/17 07:29 96 16 97 Room Air 09/02/17 07:09 36.7 100 18 102/69 (80) 99 Room Air 09/02/17 04:04 37.1 105 17 97/64 (75) 97 Room Air 09/02/17 04:00 96 Room Air 09/02/17 00:00 96 Room Air 09/01/17 23:05 36.8 94 17 95/62 (73) 93 Room Air Physical Exam General Appearance: WD/WN, no apparent distress Eyes: normal inspection, PERRL, EOMI, sclerae normal ENT: normal ENT inspection, hearing grossly normal, TMs normal, pharynx normal Neck: supple, no adenopathy, thyroid normal, no JVD Respiratory/Chest: chest non-tender, lungs clear, normal breath sounds, no respiratory distress Cardiovascular: regular rate, rhythm, no edema, no gallop, no JVD Abdomen: normal bowel sounds, non tender, soft, no organomegaly Extremities: normal range of motion, non-tender, normal inspection, no pedal edema Neurologic/Psychiatric: no motor/sensory deficits, alert, normal mood/affect Skin: normal color, warm/dry, no rash Lymphatic: no adenopathy Laboratory Results Last 24 Hours Test 09/01/17 21:13 09/01/17 22:46 09/01/17 23:59 09/02/17 03:54 Bedside Glucose 110 mg/dl 157 mg/dl Sodium Level 133 mmol/L 133 mmol/L Potassium Level 3.9 mmol/L 3.8 mmol/L Chloride Level 98 mmol/L 100 mmol/L Carbon Dioxide Level 26 mmol/L 22 mmol/L Anion Gap 9.0 mmol/L 11.0 mmol/L Blood Urea Nitrogen 21 mg/dl 20 mg/dl Creatinine 2.37 mg/dl 2.22 mg/dl Est Creatinine Clear Calc Drug Dose 23.7 ml/min 25.3 ml/min Estimated GFR () 26.4 28.6 Estimated GFR (Non- 22.8 24.7 BUN/Creatinine Ratio 9.0 9.2 Random Glucose 94 mg/dl 90 mg/dl Calcium Level 6.6 mg/dl 6.4 mg/dl White Blood Count 7.73 K/uL Red Blood Count 3.22 M/uL Hemoglobin 9.8 g/dL Hematocrit 28.7 % Mean Corpuscular Volume 89.1 fL Mean Corpuscular Hemoglobin 30.4 pg Mean Corpuscular Hemoglobin Concent 34.1 g/dl Platelet Count 176 K/uL Mean Platelet Volume 9.9 fL Neutrophils (%) (Auto) 59.8 % Lymphocytes (%) (Auto) 25.9 % Monocytes (%) (Auto) 12.0 % Eosinophils (%) (Auto) 1.3 % Basophils (%) (Auto) 0.4 % Neutrophils # (Auto) 4.62 K/uL Lymphocytes # (Auto) 2.00 K/uL Monocytes # (Auto) 0.93 K/uL Eosinophils # (Auto) 0.10 K/uL Basophils # (Auto) 0.03 K/uL RDW Standard Deviation 49.2 fL RDW Coefficient of Variation 14.9 % Immature Granulocyte % (Auto) 0.6 % Immature Granulocyte # (Auto) 0.05 K/uL Phosphorus Level 5.3 mg/dl Magnesium Level 1.4 mg/dl Total Bilirubin 0.2 mg/dl Aspartate Amino Transf (AST/SGOT) 29 U/L Alanine Aminotransferase (ALT/SGPT) 38 U/L Alkaline Phosphatase 159 U/L Total Protein 7.2 gm/dl Albumin 2.7 gm/dl Globulin 4.5 gm/dl Albumin/Globulin Ratio 0.6 Test 09/02/17 08:30 09/02/17 12:03 09/02/17 15:52 09/02/17 19:59 Sodium Level 133 mmol/L 133 mmol/L 131 mmol/L 134 mmol/L Potassium Level 3.5 mmol/L 3.4 mmol/L 3.6 mmol/L 3.9 mmol/L Chloride Level 100 mmol/L 101 mmol/L 99 mmol/L 101 mmol/L Carbon Dioxide Level 23 mmol/L 22 mmol/L 22 mmol/L 24 mmol/L Anion Gap 10.0 mmol/L 10.0 mmol/L 10.0 mmol/L 9.0 mmol/L Blood Urea Nitrogen 19 mg/dl 19 mg/dl 16 mg/dl 17 mg/dl Creatinine 2.10 mg/dl 2.00 mg/dl 2.16 mg/dl 2.08 mg/dl Est Creatinine Clear Calc Drug Dose 26.7 ml/min 28.1 ml/min 26.0 ml/min 27.0 ml/min Estimated GFR () 30.6 32.4 29.6 30.9 Estimated GFR (Non- 26.4 28.0 25.5 26.7 BUN/Creatinine Ratio 9.2 9.6 7.6 8.1 Random Glucose 95 mg/dl 125 mg/dl 117 mg/dl 92 mg/dl Calcium Level 7.1 mg/dl 6.6 mg/dl 6.7 mg/dl 6.8 mg/dl Magnesium Level 1.3 mg/dl 2.0 mg/dl Assessment and Plan 52 years old female who was diagnosed with recurrent low-grade serous ovarian cancer/fallopian tube since 2007. Complicated by small bowel obstruction status post laparotomy/intero lysis/ ileocecal resection with anastomosis. That was complicated by bowel gangrene, requiring bowel resection and colostomy around 2016. Presented with acute kidney injury/hyperkalemia/ seizure times one episode Assessment Seizure likely related to electrolyte disturbances Dehydration, decrease oral intake Acute kidney injury, baseline creatinine is unknown Hyperkalemia secondary to above Hypomagnesemia Complicated UTI present on admission in the setting of indwelling Moffett catheter Hypothyroidism Recurrent ovarian cancer status post chemotherapy/resection currently have colostomy and on hormonal therapy DVT currently on anticoagulation Severe protein calorie malnutrition Critical care illness myopathy Plan Admit patient to telemetry Cont albuterol 5 mg continuous nebulizer to lower potassium level Generous IV fluid hydration and Lasix if needed Ultrasound renal Consult coupon redemption clerk Obtain blood culture/urine culture Replace Moffett catheter Cont patient on Cipro 400 mg daily renally adjusted dose and obtain [facility] with her last creatinine function level Start her on lactobacillus to protect her from C. difficile Follow up electrolytes Continue Lovenox subcutaneous twice a day Continue Protonix Seizure precaution Ativan when necessary seizure
[2017-09-02] MEDS: OLANZAPINE 2.5 MG TAB PO SCH (21:08)
[2017-09-03] VITALS (10 sets, daily range): BP systolic 104–129; BP diastolic 68–83; PULSE 70–123; TEMP 36.5–37.3; O2SAT 96–100
[2017-09-03 01:02] LABS: CREATININE 2.08 mg/dl (0.60-1.20); POTASSIUM 3.9 mmol/L (3.5-5.1)
[2017-09-03] MEDS: SODIUM CHLORIDE 0.9% 1000ML 1,000 ML IV SCH (07:10)
[2017-09-03] MEDS: BOOST BREEZE NUTRITION DRINK 1 BOX PO SCH ×3 (08:00→17:13)
[2017-09-03] MEDS: PANTOprazole SOD 40 MG TAB PO SCH (08:40)
[2017-09-03] MEDS: LACTOBACILLUS ACIDOPHILUS 1 GM PACK PO SCH ×3 (08:40→16:48)
[2017-09-03] MEDS: SODIUM BICARBONATE 650 MG TAB PO SCH (08:40)
[2017-09-03 10:06] LABS: PHOSPHORUS 2.7 mg/dl (2.5-4.9)
--- NOTE | 2017-09-03 10:51 | Nephrology Progress Note ---
Nephrology Progress Note Date of Service Sep 03, 2017. Chief Complaint Acute renal insufficiency, hyperkalemia Subjective No acute events overnight. Dora is resting comfortably in bed this morning. Ostomy output ~250 ml/d. Appetite poor. No abdominal pain. No nausea. Dora states that overall she feels weak but well. Review of Systems A complete review of systems was performed. Pertinent positives are noted above. All other systems are negative. Vital Signs Last 8 Hrs Date Time Temp Pulse Resp B/P (MAP) Pulse Ox O2 Delivery O2 Flow Rate FiO2 09/03/17 08:00 99 Room Air 09/03/17 07:42 37.1 95 18 124/81 (95) 96 Room Air 09/03/17 04:00 Room Air 09/03/17 04:00 37.1 88 20 112/71 (85) 99 Room Air Last Recorded Weight Weight (Kilograms): 54.000 Physical Exam General Appearance: WD/WN, no apparent distress Head: normocephalic, atraumatic Eyes: normal inspection, sclerae normal ENT: normal ENT inspection, pharynx normal Neck: supple, no JVD Respiratory/Chest: lungs clear, no respiratory distress, no accessory muscle use Cardiovascular: regular rate, rhythm, no gallop Abdomen/GI: non tender, soft, + pertinent finding (ostomy with liquid stool) Extremities/Musculoskelatal: normal inspection, no pedal edema Neurologic/Psych: alert, + depressed affect Family History Diabetes mellitus Heart disease Hypertension Stroke Patient's mother was on hemodialysis for 2 years in [facility] before she at the age of 73. Social History Marital Status: Occupation: disabled Lives in a senior care in [place], [place]. Laboratory Results Past 24 Hours 09/02/17 12:03 09/02/17 15:52 09/02/17 19:59 09/03/17 00:01 Test 09/02/17 12:03 09/02/17 15:52 09/02/17 19:59 09/03/17 00:01 Anion Gap 10.0 mmol/L (3-11) 10.0 mmol/L (3-11) 9.0 mmol/L (3-11) 8.0 mmol/L (3-11) Est Creatinine Clear Calc Drug Dose 28.1 ml/min 26.0 ml/min 27.0 ml/min 27.0 ml/min Estimated GFR () 32.4 29.6 30.9 30.9 Estimated GFR (Non- 28.0 25.5 26.7 26.7 BUN/Creatinine Ratio 9.6 (10-20) 7.6 (10-20) 8.1 (10-20) 7.9 (10-20) Calcium Level 6.6 mg/dl (8.5-10.1) 6.7 mg/dl (8.5-10.1) 6.8 mg/dl (8.5-10.1) 7.0 mg/dl (8.5-10.1) Magnesium Level 1.3 mg/dl (1.8-2.4) 2.0 mg/dl (1.8-2.4) Test 09/03/17 04:08 Phosphorus Level 2.7 mg/dl (2.5-4.9) Magnesium Level 1.8 mg/dl (1.8-2.4) Free Thyroxine 1.11 ng/dl (0.80-1.60) Allergies Coded Allergies: No Known Allergies (Unverified , 09/01/17) Medications Current Inpatient Medications Medications (Trade) Dose Ordered Sig/Balaji Route Start Time Stop Time Status Last Admin Dose Admin Enoxaparin Sodium (Lovenox Inj) 60 mg DAILY@1800 SQ 09/01/17 18:00 10/01/17 17:59 09/02/17 17:30 60 MG Olanzapine (Zyprexa Tab) 2.5 mg HS PO 09/01/17 21:00 10/01/17 20:59 09/02/17 21:08 2.5 MG Ondansetron HCl (Zofran Tab) 4 mg Q8 PRN PO 09/01/17 12:00 10/01/17 11:59 Oxycodone HCl (Roxicodone Immediate Rel Tab) 5 mg Q3H PRN PO 09/01/17 12:00 09/15/17 11:59 Pantoprazole Sodium (Protonix Tab) 40 mg DAILY PO 09/02/17 09:00 10/02/17 08:59 09/03/17 08:40 40 MG Sodium Chloride 1,000 ml @ 125 mls/hr Q8H IV 09/01/17 11:59 10/01/17 11:58 09/03/17 07:10 125 MLS/HR Acetaminophen (Tylenol Tab) 650 mg Q4H PRN PO 09/01/17 12:00 10/01/17 11:59 Al Hydrox/Mg Hydrox/Simethicone (Maalox Max Susp) 15 ml Q4H PRN PO 09/01/17 12:00 10/01/17 11:59 Magnesium Hydroxide (Milk Of Magnesia Susp) 30 ml Q12H PRN PO 09/01/17 12:00 10/01/17 11:59 Zolpidem Tartrate (Ambien Tab) 5 mg HSZ PRN PO 09/01/17 12:00 10/01/17 11:59 Ondansetron HCl (Zofran Inj) 4 mg Q6H PRN IV 09/01/17 12:00 10/01/17 11:59 Polyethylene (Miralax Powder Packet) 17 gm DAILY PRN PO 09/01/17 12:00 10/01/17 11:59 Ciprofloxacin/ Dextrose 400 mg/ Prmx 200 ml @ 100 mls/hr DAILY@1600 IV 09/01/17 16:00 09/11/17 15:59 09/02/17 16:38 100 MLS/HR Lactobacillus Acidophilus (Lactinex Granules Pack) 1 gm TIDM PO 09/01/17 17:00 10/01/17 17:59 09/03/17 08:40 1 GM Lorazepam (Ativan Inj) 2 mg Q2H PRN IV 09/01/17 12:15 10/01/17 12:14 Lorazepam 2 mg/ Syringe 2 ml @ 1 mls/min Q2H PRN IV 09/01/17 14:15 10/01/17 14:14 Enteral Nutritional Formula (Boost Breeze Nutritional Drink) 1 box TIDM PO 09/01/17 17:00 10/01/17 16:59 09/02/17 17:15 1 BOX Sodium Bicarbonate (Sodium Bicarbonate Tab) 650 mg TID PO 09/01/17 21:00 10/01/17 20:59 09/03/17 08:40 650 MG Bupropion HCl (Wellbutrin Tab) 25 mg BID PO 09/02/17 09:00 10/01/17 20:59 09/03/17 08:40 25 MG Albuterol/ Ipratropium (Duoneb) 3 ml QIDR PRN INH 09/02/17 14:45 10/02/17 14:44 Diclofenac Sodium (Voltaren 1% Top Gel) 1 appln Q8H PRN EXT 09/02/17 19:45 10/02/17 19:44 09/02/17 21:39 1 APPLN Impression (1) Acute renal failure (2) Hyperkalemia (3) Hypomagnesemia (4) Seizure (5) Ovarian cancer Dora Garsia is a 52-year-old female with acute on chronic renal insufficiency. Baseline creatinine is 1.3 mg/dL. 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 Medical history is notable serous ovarian/fallopian tube cancer. The patient has high output ostomy. She presented with reported witnessed seizure and severe electrolyte abnormalities including hyperkalemia and hypomagnesemia. Renal ultrasound documented chronic cortical changes but no evidence of obstruction. The patient has an indwelling Moffett catheter. TAJ can be attributed to ATN and prerenal azotemia. She is tolerating IVF well. We will continue saline and HCO3 replacement with close monitoring. Hyperkalemia resolved. Hypomagnesemia treated.. I suspect metabolic abnormalities are related to GI losses and poor oral intake. BP is low and Lopressor has been held. Recommendations -- Hold saline infusion and HCO3 replacement today -- Encourage nutrition -- Monitor metabolic profile twice daily -- Document I/O's -- Plan of care discussed with Dr. Vizcarra -- Hold metoprolol -- Monitor and replace magnesium daily
--- NOTE | 2017-09-03 14:12 | Medical Consult ---
Consultation Date of Consultation: Sep 03, 2017. Attending Physician: Jimmy Vizcarra D.O. History of Present Illness 52 y/o female admitted two ays ago from [facility] after seizure. She has been at rehab following multiple surgical procedures at [facility] for bowel obstruction secondary to ovarian cancer. Apparently this included ex lap with ileocecal resection with presumed anastomotic failure and subsequent ileostomy. The patient is unsure what procedure were performed. She has had a wound vac since her last procedure around . During wound vac change there was a question of necrotic vs fecal tissue in the wound. We were asked to evaluate this. Past Medical/Surgical History Medical Problems: Low grade serous ovarian cancer SBO Chronic anemia Neuropathy associated with chemotherapy Depression GERD Chronic kidney disease Surgical History: ex lap for SBO, ileocecal resection with presumed anastomotic failure and subsequent ileostomy Family History Diabetes mellitus Heart disease Hypertension Stroke Social History Smoking Status: Never Smoker Marital Status: Housing Status: other ([facility]) Occupation Status: disabled Allergies Coded Allergies: No Known Allergies (Unverified , 09/01/17) Current Inpatient Medications Current Inpatient Medications Medications (Trade) Dose Ordered Sig/Balaji Route Start Time Stop Time Status Last Admin Dose Admin Enoxaparin Sodium (Lovenox Inj) 60 mg DAILY@1800 SQ 09/01/17 18:00 10/01/17 17:59 09/02/17 17:30 60 MG Olanzapine (Zyprexa Tab) 2.5 mg HS PO 09/01/17 21:00 10/01/17 20:59 09/02/17 21:08 2.5 MG Ondansetron HCl (Zofran Tab) 4 mg Q8 PRN PO 09/01/17 12:00 10/01/17 11:59 Oxycodone HCl (Roxicodone Immediate Rel Tab) 5 mg Q3H PRN PO 09/01/17 12:00 09/15/17 11:59 Pantoprazole Sodium (Protonix Tab) 40 mg DAILY PO 09/02/17 09:00 10/02/17 08:59 09/03/17 08:40 40 MG Acetaminophen (Tylenol Tab) 650 mg Q4H PRN PO 09/01/17 12:00 10/01/17 11:59 Al Hydrox/Mg Hydrox/Simethicone (Maalox Max Susp) 15 ml Q4H PRN PO 09/01/17 12:00 10/01/17 11:59 Magnesium Hydroxide (Milk Of Magnesia Susp) 30 ml Q12H PRN PO 09/01/17 12:00 10/01/17 11:59 Zolpidem Tartrate (Ambien Tab) 5 mg HSZ PRN PO 09/01/17 12:00 10/01/17 11:59 Ondansetron HCl (Zofran Inj) 4 mg Q6H PRN IV 09/01/17 12:00 10/01/17 11:59 Polyethylene (Miralax Powder Packet) 17 gm DAILY PRN PO 09/01/17 12:00 10/01/17 11:59 Ciprofloxacin/ Dextrose 400 mg/ Prmx 200 ml @ 100 mls/hr DAILY@1600 IV 09/01/17 16:00 09/11/17 15:59 09/02/17 16:38 100 MLS/HR Lactobacillus Acidophilus (Lactinex Granules Pack) 1 gm TIDM PO 09/01/17 17:00 10/01/17 17:59 09/03/17 12:00 1 GM Lorazepam (Ativan Inj) 2 mg Q2H PRN IV 09/01/17 12:15 10/01/17 12:14 Lorazepam 2 mg/ Syringe 2 ml @ 1 mls/min Q2H PRN IV 09/01/17 14:15 10/01/17 14:14 Enteral Nutritional Formula (Boost Breeze Nutritional Drink) 1 box TIDM PO 09/01/17 17:00 10/01/17 16:59 09/02/17 17:15 1 BOX Bupropion HCl (Wellbutrin Tab) 25 mg BID PO 09/02/17 09:00 10/01/17 20:59 09/03/17 08:40 25 MG Albuterol/ Ipratropium (Duoneb) 3 ml QIDR PRN INH 09/02/17 14:45 10/02/17 14:44 Diclofenac Sodium (Voltaren 1% Top Gel) 1 appln Q8H PRN EXT 09/02/17 19:45 10/02/17 19:44 09/02/17 21:39 1 APPLN Review of Systems Abdomen: + problem reported (not aware of drainage from wound), No pain, No nausea Physical Exam Date Time Temp Pulse Resp B/P (MAP) Pulse Ox O2 Delivery O2 Flow Rate FiO2 09/03/17 12:08 36.5 123 16 104/68 (80) 96 Room Air 09/03/17 12:01 99 Room Air 09/03/17 08:00 99 Room Air 09/03/17 07:42 37.1 95 18 124/81 (95) 96 Room Air 09/03/17 04:00 Room Air 09/03/17 04:00 37.1 88 20 112/71 (85) 99 Room Air 09/03/17 00:00 Room Air 09/02/17 23:28 36.9 101 16 103/63 (76) 98 Room Air 09/02/17 20:00 Room Air 09/02/17 16:00 99 Room Air General Appearance: no apparent distress Abdomen/GI: non tender, soft, + pertinent finding (majority of the midline wound is healed, there is a 1 cm opening approx 1 cm deep with nectrotic tissue) Laboratory Results Last 24 Hours Test 09/02/17 15:52 09/02/17 19:59 09/03/17 00:01 09/03/17 04:08 Sodium Level 131 mmol/L 134 mmol/L 136 mmol/L Potassium Level 3.6 mmol/L 3.9 mmol/L 3.9 mmol/L Chloride Level 99 mmol/L 101 mmol/L 104 mmol/L Carbon Dioxide Level 22 mmol/L 24 mmol/L 24 mmol/L Anion Gap 10.0 mmol/L 9.0 mmol/L 8.0 mmol/L Blood Urea Nitrogen 16 mg/dl 17 mg/dl 17 mg/dl Creatinine 2.16 mg/dl 2.08 mg/dl 2.08 mg/dl Est Creatinine Clear Calc Drug Dose 26.0 ml/min 27.0 ml/min 27.0 ml/min Estimated GFR () 29.6 30.9 30.9 Estimated GFR (Non- 25.5 26.7 26.7 BUN/Creatinine Ratio 7.6 8.1 7.9 Random Glucose 117 mg/dl 92 mg/dl 90 mg/dl Calcium Level 6.7 mg/dl 6.8 mg/dl 7.0 mg/dl Magnesium Level 2.0 mg/dl 1.8 mg/dl Phosphorus Level 2.7 mg/dl Free Thyroxine 1.11 ng/dl Test 09/03/17 12:59 Magnesium Level 1.8 mg/dl Assessment & Plan midline wound Necrotic tissue debrided at bedside by Dr. Ponce. Suture knot was identified at the base of the wound and left intact. Does not appear to be enterocutaneous fistula. Continue local wound care.
[2017-09-03] MEDS: CIPROFLOXACIN / D5W 400 MG in PREMIXED IN D5W 200 ML IV SCH (16:48)
[2017-09-03] MEDS: ENOXAPARIN 60 MG/0.6 ML SYR SQ SCH (17:48)
--- NOTE | 2017-09-03 20:02 | Progress Note ---
Subjective Date of Service: Sep 03, 2017. Subjective Pt evaluation today including: conversation w/ patient, conversation w/ family , physical exam, chart review, lab review, review of studies, review of inpatient medication list Pt resting comfortably in bed No concerns or complaints Problem List Medical Problems: (1) Acute renal failure Status: Acute (2) Seizure Status: Acute Review of Systems Constitutional: No see HPI, No fever, No chills, No sweats, No weight loss, No weakness, No fatigue, No problem reported Eyes: No see HPI, No worsening of vision, No eye pain, No redness, No discharge , No diplopia, No problem reported Respiratory: No see HPI, No cough, No sputum, No wheezing, No shortness of breath, No dyspnea on exertion, No dyspnea at rest, No hemoptysis, No problem reported Cardiac: No see HPI, No chest pain, No orthopnea, No PND, No edema, No claudication, No palpitations, No problem reported Abdomen: No see HPI, No pain, No nausea, No vomiting, No diarrhea, No constipation, No GI bleeding, No problem reported Musculoskeletal: No see HPI, No joint pain, No muscle pain, No swelling, No calf pain, No problem reported Female : No see HPI, No dysuria, No urinary frequency, No hematuria, No incontinence, No abnormal vaginal bleeding, No vaginal discharge, No problem reported Neurologic: No see HPI, No memory loss, No paralysis, No weakness, No numbness/ tingling, No vertigo, No balance problems, No problem reported Psychiatric: No see HPI, No depression symptoms, No anhedonism, No anxiety, No insomnia, No substance abuse, No problem reported Skin: No see HPI, No rash, No itch, No new/changing skin lesions, No color change, No bleeding, No problem reported Objective Vital Signs Date Time Temp Pulse Resp B/P (MAP) Pulse Ox O2 Delivery O2 Flow Rate FiO2 09/03/17 19:45 37.3 98 18 129/83 (98) 100 Room Air 09/03/17 16:07 36.9 70 18 118/83 (95) 99 Room Air 09/03/17 16:03 36.9 70 18 118/83 (95) 99 Room Air 09/03/17 16:00 96 Room Air 09/03/17 12:08 36.5 123 16 104/68 (80) 96 Room Air 09/03/17 12:01 99 Room Air 09/03/17 08:00 99 Room Air 09/03/17 07:42 37.1 95 18 124/81 (95) 96 Room Air 09/03/17 04:00 Room Air 09/03/17 04:00 37.1 88 20 112/71 (85) 99 Room Air 09/03/17 00:00 Room Air 09/02/17 23:28 36.9 101 16 103/63 (76) 98 Room Air 09/02/17 20:00 Room Air Physical Exam General Appearance: WD/WN, no apparent distress Eyes: normal inspection, PERRL, EOMI, sclerae normal Neck: supple, no adenopathy, thyroid normal, no JVD Respiratory/Chest: chest non-tender, lungs clear, normal breath sounds, no respiratory distress Cardiovascular: regular rate, rhythm, no edema, no gallop, no JVD Abdomen: normal bowel sounds, non tender, soft, no organomegaly Neurologic/Psychiatric: no motor/sensory deficits, alert, normal mood/affect, oriented x 3 Skin: normal color, warm/dry, no rash Lymphatic: no adenopathy Laboratory Results Last 24 Hours Test 09/03/17 00:01 09/03/17 04:08 09/03/17 12:59 09/03/17 19:40 Sodium Level 136 mmol/L Potassium Level 3.9 mmol/L Chloride Level 104 mmol/L Carbon Dioxide Level 24 mmol/L Anion Gap 8.0 mmol/L Blood Urea Nitrogen 17 mg/dl Creatinine 2.08 mg/dl Est Creatinine Clear Calc Drug Dose 27.0 ml/min Estimated GFR () 30.9 Estimated GFR (Non- 26.7 BUN/Creatinine Ratio 7.9 Random Glucose 90 mg/dl Calcium Level 7.0 mg/dl Phosphorus Level 2.7 mg/dl Magnesium Level 1.8 mg/dl 1.8 mg/dl Free Thyroxine 1.11 ng/dl Assessment and Plan 52 years old female who was diagnosed with recurrent low-grade serous ovarian cancer/fallopian tube since 2007. Complicated by small bowel obstruction status post laparotomy/intero lysis/ ileocecal resection with anastomosis. That was complicated by bowel gangrene, requiring bowel resection and colostomy around 2016. Presented with acute kidney injury/hyperkalemia/ seizure times one episode Assessment Seizure likely related to electrolyte disturbances Dehydration, decrease oral intake Acute kidney injury, baseline creatinine is unknown Hyperkalemia secondary to above Hypomagnesemia Complicated UTI present on admission in the setting of indwelling Moffett catheter Hypothyroidism Recurrent ovarian cancer status post chemotherapy/resection currently have colostomy and on hormonal therapy DVT currently on anticoagulation Severe protein calorie malnutrition Critical care illness myopathy Plan Admit patient to telemetry Cont albuterol 5 mg continuous nebulizer to lower potassium level Generous IV fluid hydration and Lasix if needed Consult federal java developer, appreciate recs Obtain blood culture/urine culture Replace Moffett catheter Cont patient on Cipro 400 mg daily renally adjusted dose and obtain records from [facility] with her last creatinine function level Start her on lactobacillus to protect her from C. difficile Follow up electrolytes Continue Lovenox subcutaneous twice a day Continue Protonix Seizure precaution Ativan when necessary seizure Surgery consulted for necrotic tissue in wound
[2017-09-03] MEDS: MAGNESIUM SULFATE 1GM / D5W 1 GM in PREMIXED IN D5W 100 ML IV SCH ×2 (21:19→22:20)
[2017-09-03] MEDS: OLANZAPINE 2.5 MG TAB PO SCH (21:20)
[2017-09-04] VITALS (7 sets, daily range): BP systolic 117–144; BP diastolic 71–87; PULSE 69–130; TEMP 36.4–37.5; O2SAT 96–98
[2017-09-04] MEDS: LACTOBACILLUS ACIDOPHILUS 1 GM PACK PO SCH ×3 (07:57→17:11)
[2017-09-04] MEDS: BOOST BREEZE NUTRITION DRINK 1 BOX PO SCH ×3 (07:58→17:10)
[2017-09-04] MEDS: PANTOprazole SOD 40 MG TAB PO SCH (07:59)
[2017-09-04 09:22] LABS: CREATININE 1.49 mg/dl (0.60-1.20)
[2017-09-04 09:33] LABS: BASO % 0.5 %; BASO ABS # 0.04 K/uL (0-0.2); EOS % 2.3 %; EOS ABS # 0.18 K/uL (0-0.5); HEMATOCRIT 28.9 % (37-47); HEMOGLOBIN 9.8 g/dL (12.0-16.0); IG# 0.04 K/uL (0.00-0.02); LYMPH % 25.3 %; MEAN CELL VOLUME 89.8 fL (80-100); MEAN CORPUSCULAR HEMOGLOBIN 30.4 pg (25-34); MEAN CORPUSCULAR HGB CONC 33.9 g/dl (32-36); MEAN PLATELET VOLUME 9.6 fL (7.4-10.4); MONO % 7.7 %; MONO ABS # 0.61 K/uL (0.11-0.59); NEUT % 63.7 %; NEUT ABS # 5.02 K/uL (1.4-6.5); PLATELET COUNT 183 K/uL (130-400); RED CELL DISTRIBUTION WIDTH CV 14.8 % (11.5-14.5); RED CELL DISTRIBUTION WIDTH SD 48.8 fL (36.4-46.3); WHITE BLOOD COUNT 7.89 K/uL (4.8-10.8)
--- NOTE | 2017-09-04 09:36 | Nephrology Progress Note ---
Nephrology Progress Note Date of Service Sep 04, 2017. Chief Complaint Acute renal insufficiency, hyperkalemia Subjective No complaints overnight. No complaints this morning. Dora denies pain. She denies shortness of breath. She denies fevers or chills. Abdominal wound debrided today. Plan of care discussed with Dr. Vizcarra this morning. Review of Systems A complete review of systems was performed. Pertinent positives are noted above. All other systems are negative. Vital Signs Last 8 Hrs Date Time Temp Pulse Resp B/P (MAP) Pulse Ox O2 Delivery O2 Flow Rate FiO2 09/04/17 07:44 Room Air 09/04/17 07:10 36.6 130 16 129/86 (100) 98 Room Air 09/04/17 04:00 Room Air 09/04/17 03:58 36.9 69 16 121/76 (91) 96 Room Air Last Recorded Weight Weight (Kilograms): 49.700 Physical Exam General Appearance: WD/WN, no apparent distress Head: normocephalic, atraumatic Eyes: normal inspection, sclerae normal ENT: normal ENT inspection, pharynx normal Neck: supple, no JVD Respiratory/Chest: lungs clear, no respiratory distress, no accessory muscle use Cardiovascular: regular rate, rhythm, no gallop Abdomen/GI: non tender, soft, + pertinent finding (ostomy intact with liquid stool in bag) Extremities/Musculoskelatal: normal inspection, no pedal edema Neurologic/Psych: alert, normal mood/affect Family History Diabetes mellitus Heart disease Hypertension Stroke Patient's mother was on hemodialysis for 2 years in [facility] before she at the age of 73. Social History Marital Status: Occupation: disabled Lives in a usp in [place], [place]. Laboratory Results Past 24 Hours 09/04/17 08:21 Test 09/03/17 12:59 09/03/17 19:40 09/04/17 08:21 09/04/17 08:57 Magnesium Level 1.8 mg/dl (1.8-2.4) 1.6 mg/dl (1.8-2.4) Anion Gap 9.0 mmol/L (3-11) Est Creatinine Clear Calc Drug Dose 34.7 ml/min Estimated GFR () 46.3 Estimated GFR (Non- 40.0 BUN/Creatinine Ratio 7.6 (10-20) Allergies Coded Allergies: No Known Allergies (Unverified , 09/01/17) Medications Current Inpatient Medications Medications (Trade) Dose Ordered Sig/Balaji Route Start Time Stop Time Status Last Admin Dose Admin Enoxaparin Sodium (Lovenox Inj) 60 mg DAILY@1800 SQ 09/01/17 18:00 10/01/17 17:59 09/03/17 17:48 60 MG Olanzapine (Zyprexa Tab) 2.5 mg HS PO 09/01/17 21:00 10/01/17 20:59 09/03/17 21:20 2.5 MG Ondansetron HCl (Zofran Tab) 4 mg Q8 PRN PO 09/01/17 12:00 10/01/17 11:59 Oxycodone HCl (Roxicodone Immediate Rel Tab) 5 mg Q3H PRN PO 09/01/17 12:00 09/15/17 11:59 Pantoprazole Sodium (Protonix Tab) 40 mg DAILY PO 09/02/17 09:00 10/02/17 08:59 09/04/17 07:59 40 MG Acetaminophen (Tylenol Tab) 650 mg Q4H PRN PO 09/01/17 12:00 10/01/17 11:59 Al Hydrox/Mg Hydrox/Simethicone (Maalox Max Susp) 15 ml Q4H PRN PO 09/01/17 12:00 10/01/17 11:59 Magnesium Hydroxide (Milk Of Magnesia Susp) 30 ml Q12H PRN PO 09/01/17 12:00 10/01/17 11:59 Zolpidem Tartrate (Ambien Tab) 5 mg HSZ PRN PO 09/01/17 12:00 10/01/17 11:59 Ondansetron HCl (Zofran Inj) 4 mg Q6H PRN IV 09/01/17 12:00 10/01/17 11:59 Polyethylene (Miralax Powder Packet) 17 gm DAILY PRN PO 09/01/17 12:00 10/01/17 11:59 Ciprofloxacin/ Dextrose 400 mg/ Prmx 200 ml @ 100 mls/hr DAILY@1600 IV 09/01/17 16:00 09/11/17 15:59 09/03/17 16:48 100 MLS/HR Lactobacillus Acidophilus (Lactinex Granules Pack) 1 gm TIDM PO 09/01/17 17:00 10/01/17 17:59 09/04/17 07:57 1 GM Lorazepam (Ativan Inj) 2 mg Q2H PRN IV 09/01/17 12:15 10/01/17 12:14 Lorazepam 2 mg/ Syringe 2 ml @ 1 mls/min Q2H PRN IV 09/01/17 14:15 10/01/17 14:14 Enteral Nutritional Formula (Boost Breeze Nutritional Drink) 1 box TIDM PO 09/01/17 17:00 10/01/17 16:59 09/04/17 07:58 1 BOX Bupropion HCl (Wellbutrin Tab) 25 mg BID PO 09/02/17 09:00 10/01/17 20:59 09/04/17 07:58 25 MG Albuterol/ Ipratropium (Duoneb) 3 ml QIDR PRN INH 09/02/17 14:45 10/02/17 14:44 Diclofenac Sodium (Voltaren 1% Top Gel) 1 appln Q8H PRN EXT 09/02/17 19:45 10/02/17 19:44 09/02/17 21:39 1 APPLN Impression (1) Acute renal failure (2) Hyperkalemia (3) Hypomagnesemia (4) Seizure (5) Ovarian cancer Dora Garsia is a 52-year-old female with acute on chronic renal insufficiency. Baseline creatinine is 1.3 mg/dL. CKD attributed to [place] based chemotherapy. Medical history is notable serous ovarian/fallopian tube cancer. She presented with reported witnessed seizure and severe electrolyte abnormalities including hyperkalemia and hypomagnesemia. Renal ultrasound documented chronic cortical changes but no evidence of obstruction. The patient has an indwelling Moffett catheter. TAJ can be attributed to ATN and prerenal azotemia. IVF discontinued yesterday. Oral intake reported as appropriate. I suspect metabolic abnormalities are related to GI losses and poor oral intake. BP is low and Lopressor has been held. Recommendations -- AM labs pending -- Encourage nutrition -- Monitor metabolic profile daily while inpatient -- Document I/O's -- Plan of care discussed with Dr. Vizcarra -- Hold metoprolol
[2017-09-04 11:04] LABS: CALCIUM 8.4 mg/dl (8.5-10.1)
[2017-09-04] MEDS ORDERED: PANTOprazole SOD 40 MG TAB PO ONE (11:45)
[2017-09-04] MEDS: ENOXAPARIN 60 MG/0.6 ML SYR SQ SCH ×2 (12:25→23:54)
[2017-09-04] MEDS ORDERED: POTASSIUM CHLORIDE 20 MEQ TABCR PO STA (12:54)
--- NOTE | 2017-09-04 12:54 | Discharge Instructions ---
Discharge Instructions Date of Service Sep 05, 2017. Admission Reason for Admission: Hyperkalemia Discharge Discharge Diagnosis / Problem: Hyperkalemia, hypomagesemia, seizure, metabolic encephalopathy Discharge Goals Goal(s): Decrease discomfort, Improve function, Increase independence, Improve disease control, Learn about illness, Diagnostic testing, Therapeutic intervention, Prevent Disease Progression Activity Recommendations Activity Limitations: resume your previous activity Exercise/Sports Limitations: as tolerated . Instructions / Follow-Up Instructions / Follow-Up Patient to be discharged back to [facility] Seizure and confusion likely due to electrolyte imbalance with high potassium and low magnesium Please continue back on potassium, will need BMP checked on wednesday09/08/17 No other changes in medications Please follow up with PCP in 1-2 weeks Current Hospital Diet Patient's current hospital diet: Renal Diet Discharge Diet Recommended Diet: Renal Diet Pending Studies Studies pending at discharge: no Medical Emergencies . Who to Call and When: Medical Emergencies: If at any time you feel your situation is an emergency, please call 911 immediately. . Non-Emergent Contact Non-Emergency issues call your: Primary Care Provider Call Non-Emergent contact if: you have a fever . . "Provider Documentation" section prepared by Jimmy Vizcarra. . VTE Core Measure Inpt VTE Proph given/why not?: Enoxaparin (Lovenox)SQ
[2017-09-04] MEDS: CIPROFLOXACIN / D5W 400 MG in PREMIXED IN D5W 200 ML IV SCH (16:05)
--- NOTE | 2017-09-04 16:28 | Progress Note ---
Subjective Date of Service: Sep 04, 2017. Subjective Pt evaluation today including: conversation w/ patient, physical exam, chart review, lab review, review of studies, conversation w/ life skills consultant, review of inpatient medication list Resting comfortably in bed No complaints at this time No distress noted Family at bedside, states shes back to her normal self Problem List Medical Problems: (1) Acute renal failure Status: Acute (2) Seizure Status: Acute Review of Systems Constitutional: No fever, No chills, No sweats, No weight loss, No weakness ENT: No hearing loss, No unusual epistaxis, No nasal symptoms, No sore throat Respiratory: No cough, No sputum, No wheezing, No shortness of breath, No dyspnea on exertion Cardiac: No chest pain, No orthopnea, No PND, No edema Abdomen: No pain, No nausea, No vomiting, No diarrhea, No constipation Musculoskeletal: No joint pain, No muscle pain, No swelling, No calf pain Female : No dysuria, No urinary frequency, No hematuria, No incontinence Neurologic: No memory loss, No paralysis, No weakness, No numbness/tingling Psychiatric: No depression symptoms, No anhedonism, No anxiety, No insomnia Endo: No fatigue, No excessive thirst Skin: No rash, No itch Objective Vital Signs Date Time Temp Pulse Resp B/P (MAP) Pulse Ox O2 Delivery O2 Flow Rate FiO2 09/04/17 15:15 37.5 98 16 136/87 (103) 97 Room Air 09/04/17 12:00 Room Air 09/04/17 11:37 36.4 79 16 144/71 (95) 97 Room Air 09/04/17 07:44 Room Air 09/04/17 07:10 36.6 130 16 129/86 (100) 98 Room Air 09/04/17 04:00 Room Air 09/04/17 03:58 36.9 69 16 121/76 (91) 96 Room Air 09/04/17 00:00 Room Air 09/03/17 23:42 37.0 93 16 127/82 (97) 99 Room Air 09/03/17 20:00 Room Air 09/03/17 19:45 37.3 98 18 129/83 (98) 100 Room Air Physical Exam General Appearance: WD/WN, no apparent distress Eyes: normal inspection, PERRL, EOMI, sclerae normal Neck: supple, no adenopathy, thyroid normal, no JVD Respiratory/Chest: chest non-tender, lungs clear, normal breath sounds, no respiratory distress Cardiovascular: regular rate, rhythm, no edema, no gallop, no JVD Abdomen: normal bowel sounds, non tender, soft, no organomegaly Extremities: normal range of motion, non-tender, normal inspection, no pedal edema Neurologic/Psychiatric: no motor/sensory deficits, alert, normal mood/affect, oriented x 3 Skin: normal color, warm/dry, no rash Lymphatic: no adenopathy Laboratory Results Last 24 Hours Test 09/03/17 19:40 09/04/17 08:21 Magnesium Level 1.6 mg/dl 2.2 mg/dl White Blood Count 7.89 K/uL Red Blood Count 3.22 M/uL Hemoglobin 9.8 g/dL Hematocrit 28.9 % Mean Corpuscular Volume 89.8 fL Mean Corpuscular Hemoglobin 30.4 pg Mean Corpuscular Hemoglobin Concent 33.9 g/dl Platelet Count 183 K/uL Mean Platelet Volume 9.6 fL Neutrophils (%) (Auto) 63.7 % Lymphocytes (%) (Auto) 25.3 % Monocytes (%) (Auto) 7.7 % Eosinophils (%) (Auto) 2.3 % Basophils (%) (Auto) 0.5 % Neutrophils # (Auto) 5.02 K/uL Lymphocytes # (Auto) 2.00 K/uL Monocytes # (Auto) 0.61 K/uL Eosinophils # (Auto) 0.18 K/uL Basophils # (Auto) 0.04 K/uL RDW Standard Deviation 48.8 fL RDW Coefficient of Variation 14.8 % Immature Granulocyte % (Auto) 0.5 % Immature Granulocyte # (Auto) 0.04 K/uL Sodium Level 135 mmol/L Potassium Level 3.0 mmol/L Chloride Level 106 mmol/L Carbon Dioxide Level 20 mmol/L Anion Gap 9.0 mmol/L Blood Urea Nitrogen 11 mg/dl Creatinine 1.49 mg/dl Est Creatinine Clear Calc Drug Dose 34.7 ml/min Estimated GFR () 46.3 Estimated GFR (Non- 40.0 BUN/Creatinine Ratio 7.6 Random Glucose 119 mg/dl Calcium Level 8.4 mg/dl Assessment and Plan 52 years old female who was diagnosed with recurrent low-grade serous ovarian cancer/fallopian tube since 2007. Complicated by small bowel obstruction status post laparotomy/intero lysis/ ileocecal resection with anastomosis. That was complicated by bowel gangrene, requiring bowel resection and colostomy around 2016. Presented with acute kidney injury/hyperkalemia/ seizure times one episode Assessment Seizure likely related to electrolyte disturbances Dehydration, decrease oral intake Acute kidney injury, baseline creatinine is unknown Hyperkalemia secondary to above Hypomagnesemia Complicated UTI present on admission in the setting of indwelling Moffett catheter Hypothyroidism Recurrent ovarian cancer status post chemotherapy/resection currently have colostomy and on hormonal therapy DVT currently on anticoagulation Severe protein calorie malnutrition Critical care illness myopathy Plan Admit patient to telemetry Cont albuterol 5 mg continuous nebulizer to lower potassium level Generous IV fluid hydration and Lasix if needed Consult hurricane tracker, appreciate recs Obtain blood culture/urine culture, urine cx pos for klebsiella Cont patient on Cipro 400 mg daily renally adjusted dose and obtain records from [facility] with her last creatinine function level Start her on lactobacillus to protect her from C. difficile Follow up electrolytes Continue Lovenox subcutaneous twice a day Continue Protonix Seizure precaution Ativan when necessary seizure Surgery consulted for necrotic tissue in wound, debridement completed
[2017-09-04] MEDS: OLANZAPINE 2.5 MG TAB PO SCH (20:50)
[2017-09-04] MEDS: OXYCODONE HCL IR 5 MG TAB (IMMEDIATE RELEASE) PO PRN (23:53)
[2017-09-05 00:08] VITALS: BP 121/80; PULSE 108; TEMP 36.7; O2SAT 99
[2017-09-05 04:58] VITALS: BP 112/78; PULSE 97; TEMP 36.6; O2SAT 99
[2017-09-05 05:53] LABS: BASO % 0.6 %; BASO ABS # 0.05 K/uL (0-0.2); EOS % 3.4 %; EOS ABS # 0.29 K/uL (0-0.5); HEMATOCRIT 33.2 % (37-47); IG# 0.05 K/uL (0.00-0.02); LYMPH % 27.6 %; LYMPH ABS # 2.37 K/uL (1.2-3.4); MEAN CELL VOLUME 88.5 fL (80-100); MEAN CORPUSCULAR HEMOGLOBIN 29.3 pg (25-34); MEAN CORPUSCULAR HGB CONC 33.1 g/dl (32-36); MEAN PLATELET VOLUME 9.5 fL (7.4-10.4); MONO % 9.9 %; MONO ABS # 0.85 K/uL (0.11-0.59); NEUT % 57.9 %; NEUT ABS # 4.97 K/uL (1.4-6.5); PLATELET COUNT 206 K/uL (130-400); RED CELL DISTRIBUTION WIDTH CV 14.9 % (11.5-14.5); RED CELL DISTRIBUTION WIDTH SD 48.5 fL (36.4-46.3); WHITE BLOOD COUNT 8.58 K/uL (4.8-10.8)
[2017-09-05 06:32] LABS: CALCIUM 8.9 mg/dl (8.5-10.1); CREATININE 1.61 mg/dl (0.60-1.20); POTASSIUM 3.1 mmol/L (3.5-5.1)
[2017-09-05 07:40] VITALS: BP 114/80; PULSE 112; TEMP 36.6; O2SAT 99
[2017-09-05] MEDS ORDERED: NURSING VERBAL MED ORDER ONE (08:00)
[2017-09-05] MEDS: LACTOBACILLUS ACIDOPHILUS 1 GM PACK PO SCH ×2 (08:02→12:00)
[2017-09-05] MEDS: PANTOprazole SOD 40 MG TAB PO SCH (08:03)
[2017-09-05] MEDS ORDERED: POTASSIUM CHLORIDE 20 MEQ TABCR PO ONE (08:15)
[2017-09-05] MEDS: DIPHENOXYLATE/ATROPINE 2.5/0.025MG TAB PO SCH ×2 (08:19→12:45)
[2017-09-05] MEDS: BOOST BREEZE NUTRITION DRINK 1 BOX PO SCH ×2 (08:20→11:12)
[2017-09-05] MEDS: OXYCODONE HCL IR 5 MG TAB (IMMEDIATE RELEASE) PO PRN (08:21)
[2017-09-05] MEDS ORDERED: METOPROLOL TARTRATE 25 MG TAB PO SCH (09:00)
[2017-09-05] MEDS: ENOXAPARIN 60 MG/0.6 ML SYR SQ SCH (11:11)
--- NOTE | 2017-09-05 13:05 | Nephrology Progress Note ---
Nephrology Progress Note Date of Service Sep 05, 2017. Chief Complaint Acute renal insufficiency, hyperkalemia Subjective Dora was resting comfortably in bed. She reports a good appetite. She denies any pain or discomfort. She does not feel lightheaded or dizzy at this time. She does not have abdominal pain. She continues to have liquid stool output from her ostomy. She has not had fevers or chills. Dora states that she hoped to be discharged to [facility] today. Ostomy output notably increased over. Review of Systems A complete review of systems was performed. Pertinent positives are noted above. All other systems are negative. Vital Signs Last 8 Hrs Date Time Temp Pulse Resp B/P (MAP) Pulse Ox O2 Delivery O2 Flow Rate FiO2 09/05/17 11:45 Room Air 09/05/17 08:00 Room Air 09/05/17 07:40 36.6 112 20 114/80 (91) 99 Room Air Last Recorded Weight Weight (Kilograms): 48.800 Physical Exam General Appearance: WD/WN, no apparent distress Head: normocephalic, atraumatic Eyes: normal inspection, sclerae normal ENT: normal ENT inspection, pharynx normal Neck: supple, no JVD Respiratory/Chest: lungs clear, no respiratory distress, no accessory muscle use Cardiovascular: regular rate, rhythm, no gallop Abdomen/GI: non tender, soft Extremities/Musculoskelatal: normal inspection, no pedal edema Neurologic/Psych: alert, + depressed affect Family History Diabetes mellitus Heart disease Hypertension Stroke Patient's mother was on hemodialysis for 2 years in [facility] before she at the age of 73. Social History Marital Status: Occupation: disabled Lives in a custodial in [place], [place]. Laboratory Results Past 24 Hours 09/05/17 05:30 Red Blood Count 3.75, Mean Corpuscular Volume 88.5, Mean Corpuscular Hemoglobin 29.3, Mean Corpuscular Hemoglobin Concent 33.1, Mean Platelet Volume 9.5, Neutrophils (%) (Auto) 57.9, Lymphocytes (%) (Auto) 27.6, Monocytes (%) (Auto) 9.9, Eosinophils (%) (Auto) 3.4, Basophils (%) (Auto) 0.6, Neutrophils # (Auto) 4.97, Lymphocytes # (Auto) 2.37, Monocytes # (Auto) 0.85, Eosinophils # (Auto) 0.29, Basophils # (Auto) 0.05 09/05/17 05:30 Test 09/05/17 05:30 White Blood Count 8.58 K/uL (4.8-10.8) Red Blood Count 3.75 M/uL (4.2-5.4) Hemoglobin 11.0 g/dL (12.0-16.0) Hematocrit 33.2 % (37-47) Mean Corpuscular Volume 88.5 fL (80-100) Mean Corpuscular Hemoglobin 29.3 pg (25-34) Mean Corpuscular Hemoglobin Concent 33.1 g/dl (32-36) Platelet Count 206 K/uL (130-400) Mean Platelet Volume 9.5 fL (7.4-10.4) Neutrophils (%) (Auto) 57.9 % Lymphocytes (%) (Auto) 27.6 % Monocytes (%) (Auto) 9.9 % Eosinophils (%) (Auto) 3.4 % Basophils (%) (Auto) 0.6 % Neutrophils # (Auto) 4.97 K/uL (1.4-6.5) Lymphocytes # (Auto) 2.37 K/uL (1.2-3.4) Monocytes # (Auto) 0.85 K/uL (0.11-0.59) Eosinophils # (Auto) 0.29 K/uL (0-0.5) Basophils # (Auto) 0.05 K/uL (0-0.2) RDW Standard Deviation 48.5 fL (36.4-46.3) RDW Coefficient of Variation 14.9 % (11.5-14.5) Immature Granulocyte % (Auto) 0.6 % Immature Granulocyte # (Auto) 0.05 K/uL (0.00-0.02) Anion Gap 10.0 mmol/L (3-11) Est Creatinine Clear Calc Drug Dose 31.5 ml/min Estimated GFR () 42.2 Estimated GFR (Non- 36.4 BUN/Creatinine Ratio 10.8 (10-20) Calcium Level 8.9 mg/dl (8.5-10.1) Magnesium Level 2.1 mg/dl (1.8-2.4) Allergies Coded Allergies: No Known Allergies (Unverified , 09/01/17) Medications Current Inpatient Medications Medications (Trade) Dose Ordered Sig/Balaji Route Start Time Stop Time Status Last Admin Dose Admin Olanzapine (Zyprexa Tab) 2.5 mg HS PO 09/01/17 21:00 10/01/17 20:59 09/04/17 20:50 2.5 MG Ondansetron HCl (Zofran Tab) 4 mg Q8 PRN PO 09/01/17 12:00 10/01/17 11:59 Oxycodone HCl (Roxicodone Immediate Rel Tab) 5 mg Q3H PRN PO 09/01/17 12:00 09/15/17 11:59 09/05/17 08:21 5 MG Pantoprazole Sodium (Protonix Tab) 40 mg DAILY PO 09/02/17 09:00 10/02/17 08:59 09/05/17 08:03 40 MG Acetaminophen (Tylenol Tab) 650 mg Q4H PRN PO 09/01/17 12:00 10/01/17 11:59 Al Hydrox/Mg Hydrox/Simethicone (Maalox Max Susp) 15 ml Q4H PRN PO 09/01/17 12:00 10/01/17 11:59 Magnesium Hydroxide (Milk Of Magnesia Susp) 30 ml Q12H PRN PO 09/01/17 12:00 10/01/17 11:59 Zolpidem Tartrate (Ambien Tab) 5 mg HSZ PRN PO 09/01/17 12:00 10/01/17 11:59 Ondansetron HCl (Zofran Inj) 4 mg Q6H PRN IV 09/01/17 12:00 10/01/17 11:59 Polyethylene (Miralax Powder Packet) 17 gm DAILY PRN PO 09/01/17 12:00 10/01/17 11:59 Ciprofloxacin/ Dextrose 400 mg/ Prmx 200 ml @ 100 mls/hr DAILY@1600 IV 09/01/17 16:00 09/11/17 15:59 09/04/17 16:05 100 MLS/HR Lactobacillus Acidophilus (Lactinex Granules Pack) 1 gm TIDM PO 09/01/17 17:00 10/01/17 17:59 09/05/17 08:02 1 GM Lorazepam (Ativan Inj) 2 mg Q2H PRN IV 09/01/17 12:15 10/01/17 12:14 Lorazepam 2 mg/ Syringe 2 ml @ 1 mls/min Q2H PRN IV 09/01/17 14:15 10/01/17 14:14 Enteral Nutritional Formula (Boost Breeze Nutritional Drink) 1 box TIDM PO 09/01/17 17:00 10/01/17 16:59 09/05/17 08:20 1 BOX Bupropion HCl (Wellbutrin Tab) 25 mg BID PO 09/02/17 09:00 10/01/17 20:59 09/05/17 08:04 25 MG Albuterol/ Ipratropium (Duoneb) 3 ml QIDR PRN INH 09/02/17 14:45 10/02/17 14:44 Diclofenac Sodium (Voltaren 1% Top Gel) 1 appln Q8H PRN EXT 09/02/17 19:45 10/02/17 19:44 09/02/17 21:39 1 APPLN Enoxaparin Sodium (Lovenox Inj) 60 mg Q12H SQ 09/04/17 11:00 10/04/17 10:59 09/05/17 11:11 60 MG Metoprolol Tartrate (Lopressor Tab) 25 mg BID PO 09/05/17 09:00 10/05/17 08:59 09/05/17 08:20 25 MG Diphenoxylate HCl/ Atropine (Lomotil Tab) 1 tab QID PO 09/05/17 09:00 10/05/17 08:59 09/05/17 12:45 1 TAB Sodium Bicarbonate (Sodium Bicarbonate Tab) 650 mg TID PO 09/05/17 14:00 10/05/17 13:59 09/05/17 12:45 650 MG Impression (1) Acute renal failure (2) Hyperkalemia (3) Hypomagnesemia (4) Seizure (5) Ovarian cancer Dora Garsia is a 52-year-old female with acute on chronic renal insufficiency. Baseline creatinine is 1.3 mg/dL. CKD attributed to [place] based chemotherapy. Medical history is notable serous ovarian/fallopian tube cancer. She presented with reported witnessed seizure and severe electrolyte abnormalities including hyperkalemia and hypomagnesemia. Renal ultrasound documented chronic cortical changes but no evidence of obstruction. The patient has an indwelling Moffett catheter. TAJ can be attributed to ATN and prerenal azotemia. The patient has high ostomy output. This has notably increased in the past 24 hours. Metabolic abnormalities can be attributed to GI losses and poor oral intake. Recommendations -- Repeat metabolic profile to monitor potassium replacement -- Encourage oral fluids and nutrition -- NaHCO3 650 mg TID -- Document I/O's -- High fiber diet, opium tincture and Lomotil; ostomy nurse consultation to assist with high output
[2017-09-05 13:30] LABS: ALBUMIN 3.2 gm/dl (3.4-5.0); CALCIUM 9.2 mg/dl (8.5-10.1); CREATININE 1.69 mg/dl (0.60-1.20); POTASSIUM 3.3 mmol/L (3.5-5.1)
[2017-09-05 13:35] LABS: PHOSPHORUS 1.9 mg/dl (2.5-4.9)
[2017-09-05 13:42] VITALS: BP 114/80; PULSE 112; TEMP 36.6; O2SAT 99
[2017-09-05] MEDS ORDERED: SODIUM BICARBONATE 650 MG TAB PO SCH (14:00)
--- NOTE | 2017-09-05 14:59 | Discharge Summary ---
Discharge Summary Date of Service Sep 05, 2017. Discharge Summary Admission Date: Sep 01, 2017 at 12:25 Discharge Date: Sep 04, 2017 Discharge Disposition: Rehab ([facility]) Principal Diagnosis: Metabolic encephalopathy Medication Reconciliation Continued Medications: Acetaminophen (Tylenol) 500 Mg Tab 500 MG PO Q4H, TAB Bupropion (Wellbutrin) 100 Mg Tab 50 MG PO BID, TAB Cholecalciferol (Vitamin D3) 2,000 Unit Cap 1 CAP PO DAILY, CAP Diphenoxylate W/ Atropine (Lomotil) 1 Tab Tab 1 TAB PO QID, TAB Docusate Sodium (Colace) 100 Mg Cap 1 CAP PO BID, CAP Enoxaparin (Lovenox) 60 Mg/0.6 Ml Inj 60 MG SQ Q12H, SYR Ipratropium-Albuterol (Duoneb) 3 Ml Nebu 1 TREATMENT INH Q4H, INHA Lactulose (Encephalopathy) (Lactulose) 10 Gm/15 Ml Esthela 30 ML PO PRN for Constipation Metoprolol Tartrate (Lopressor) (Lopressor) 25 Mg Tab 25 MG PO BID, TAB Olanzapine (Zyprexa) 5 Mg Tab 0.5 TAB PO HS, TAB Ondansetron Hcl (Zofran) 4 Mg Tab 4 MG PO Q8 PRN for Nausea, TAB Opium Tincture (Opium Tincture) 1 % Tin 0.4 ML PO Q6H Oxycodone Ir (Roxicodone Ir) 5 Mg Tab 5 MG PO Q3H PRN for Severe Pain, TAB Pantoprazole (Protonix) 40 Mg Tab 40 MG PO DAILY, TAB Potassium Ext Rel (Klor-Con) 20 Meq Tabcr 20 MEQ PO BID, TAB Discharge Exam Review of Systems: Constitutional: No fever, No chills, No sweats, No weakness Respiratory: No cough, No sputum, No wheezing, No shortness of breath, No dyspnea on exertion Cardiovascular: No chest pain, No orthopnea, No PND Abdomen: + diarrhea, No pain, No nausea, No vomiting Musculoskeletal: No joint pain, No muscle pain, No swelling, No calf pain Genitourinary - Female: No dysuria, No urinary frequency, No urinary urgency , No urinary incontinence Neurologic: No memory loss, No paralysis, No weakness, No numbness/tingling Psychiatric: No depression symptoms, No anhedonism, No anxiety, No insomnia Endocrine: No fatigue, No excessive thirst Integumentary: No rash, No itch Physical Exam: General Appearance: WD/WN, no apparent distress Eyes: normal inspection, PERRL, EOMI, sclerae normal Neck: supple, no adenopathy, thyroid normal, no JVD Respiratory/Chest: chest non-tender, lungs clear, normal breath sounds, no respiratory distress Cardiovascular: regular rate, rhythm, no edema, no gallop, no JVD Abdomen / GI: normal bowel sounds, non tender, soft, no organomegaly Extremities: normal inspection, no calf tenderness, normal capillary refill , no pedal edema Neurologic/Psychiatric: no motor/sensory deficits, alert, normal mood/affect , oriented x 3 Skin: normal color, warm/dry, no rash Lymphatic: no adenopathy Hospital Course 52 years old female who was diagnosed with recurrent low-grade serous ovarian cancer/fallopian tube since 2007. Complicated by small bowel obstruction status post laparotomy/intero lysis/ ileocecal resection with anastomosis. That was complicated by bowel gangrene, requiring bowel resection and colostomy around 2016. Presented with acute kidney injury/hyperkalemia/ seizure times one episode Assessment Seizure likely related to electrolyte disturbances Dehydration, decrease oral intake Acute kidney injury, baseline creatinine is unknown Hyperkalemia secondary to above Hypomagnesemia Complicated UTI present on admission in the setting of indwelling Moffett catheter Hypothyroidism Recurrent ovarian cancer status post chemotherapy/resection currently have colostomy and on hormonal therapy DVT currently on anticoagulation Severe protein calorie malnutrition Critical care illness myopathy Plan Admitted patient to telemetry Seizure likely related to electrolyte imbalance Neurology consulted, head CT and EEG unremarkable Initial potassium 6.8, given albuterol, kayexalate, IV fluids for hyperkalemia - RESOLVED Consult thrasher feeder, appreciate recs, low K diet and sodium bicarb On discharge, potassium low at 3.1, recommend restarting potassium supplements at 20 meq PO BID Recommend repeating labs on 09/08/17 Pt also found to have UTI, pos for klebsiella, completed 5 days of IV cipro, asymptomatic, no antibx needed on DC Continue Lovenox subcutaneous twice a day Wound care consulted for necrotic tissue at abd wound site. Debridement completed 09/03/17 Total Time Spent: Greater than 30 minutes This includes examination of the patient, discharge planning, medication reconciliation, and communication with other providers. Discharge Instructions Please refer to the electronic Patient Visit Report (Discharge Instructions) for additional information.
[2017-09-07] MEDS ORDERED: IMD2 PO (13:12)
[2017-09-07] MEDS ORDERED: SENN1TAB65 PO (13:12)
== END 2017-09-05 15:38 | DRG 100 ==
LOC: EDBD 08:35 → C.EDA 08:37 → C.MED 12:25 → CMPBEDREQ 12:48 → ENRESERV 13:23
PROVIDERS: ADMIT Internal Medicine; ATTEND Hospitalist
PROC: 0HD7XZZ Extraction of Abdomen Skin, External Approach (ICD-10-PCS; principal; 2017-09-03)
DX: R56.9 Unspecified convulsions (principal); N17.0 Acute kidney failure with tubular necrosis; E43 Unspecified severe protein-calorie malnutrition; G93.40 Encephalopathy, unspecified; Z68.1 Body mass index [BMI] 19.9 or less, adult; E87.2 Acidosis; N39.0 Urinary tract infection, site not specified; T83.511A Infection and inflammatory reaction due to indwelling urethral catheter, initial encounter; C56.9 Malignant neoplasm of unspecified ovary; E86.0 Dehydration; E87.5 Hyperkalemia; E83.42 Hypomagnesemia; E03.9 Hypothyroidism, unspecified; T45.1X5A Adverse effect of antineoplastic and immunosuppressive drugs, initial encounter; G62.0 Drug-induced polyneuropathy; N18.9 Chronic kidney disease, unspecified; Z79.01 Long term (current) use of anticoagulants; Z79.899 Other long term (current) drug therapy; Z86.718 Personal history of other venous thrombosis and embolism; Y84.6 Urinary catheterization as the cause of abnormal reaction of the patient, or of later complication, without mention of misadventure at the time of the procedure; Z93.3 Colostomy status